=== PATIENT | female | born 1945 | race Two or more races ===

== ENCOUNTER 2024-12-25 19:10 | Inpatient (IN) | payer OTHER, MEDICAID ==
[~2024-12-25] VITALS: Ht 157.5 cm; Wt 46.2 kg
--- NOTE | 2024-12-25 19:51 | ED.PDOC ---
History of Present Illness HPI Comments 79 year old female brought in by daughter presents to the ED with a chief complaint of wound check onset today (12/25/24). Per daughter, patient is bed ridden, was at hospice care 3 months ago in [place], daughter took patient out of hospice and brought patient to live with her. Daughter states patient bed sores worsen the past 5 days, has yellow discharge with foul odor. Daughter also noticed patient began experiencing poor appetite since this morning. Patient has not seen PCP, daughter is trying to change primary care physician. PMHx dementia, Parkinson's disease, DM, HTN. Denies nausea, vomiting, diarrhea, shortness of breath, fever, chills. No other symptoms or modifying factors present at this time. Chief Complaint: Wound Check Time Seen by MD: 19:25 Reviewed Notes: Medications, Allergies Allergies: Coded Allergies: NO KNOWN ALLERGIES (Unverified , 12/25/24) Information Source: Patient, Relative (Child) Mode of Arrival: Ambulatory Severity: Moderate Timing: Days Duration: Since onset Prehospital treatment: None Vital Signs Vital Signs Date Time Temp Pulse Resp B/P (MAP) Pulse Ox O2 Delivery O2 Flow Rate FiO2 12/25/24 22:52 98.9 60 12 148/88 (108) 96 98.9 12/25/24 22:52 Room Air* 0 21 Physical Exam General: Awake, alert , appears cachectic Skin: Skin in warm, dry. There is approximately 5 x 4 cm circular ulceration over the sacral area with necrotic base, surrounding erythema, some purulent drainage. There is approximately 4 x 3 cm circular ulceration over the right lateral iliac with necrotic base HEENT: The head is normocephalic and atraumatic. Conjunctivae are clear without exudates or hemorrhage. Sclera is non-icteric. Cardiac: Regular rate Respiratory: No signs of respiratory distress. No Stridor. Extremities: Upper and lower extremities are contracted Neurological: The patient is awake, alert , nonverbal Review of Systems: Unable to obtain ROS secondary to patient nonverbal Past Medical History PAST MEDICAL HISTORY: Dementia, DM, HTN Past Medical History (Other): Parkinson's disease Surgical History: Denies all surgeries PIN DRAFTER History: No Pertinent PIN DRAFTER History Family History Family History: Reviewed,noncontributory to illness, No family hx of Cancer, No family hx of DM, No family hx of Heart cheri, No family hx of HTN, No family hx ofKidney cheri, No family hx of Liver cheri, No family hx of Lung cheri, No family hx of Stroke Social History Smoker: Non-Smoker Alcohol: Denies ETOH Use Drugs: Denies Drug Use Lives In: Home Was a procedure done? Was a procedure done?: No Differential Dx Considerations may include: Cellulitis, sepsis, osteomyelitis, infected decubitus ulcer, other X-Ray, Labs, Meds, VS Vital Signs Date Time Temp Pulse Resp B/P (MAP) Pulse Ox O2 Delivery O2 Flow Rate FiO2 12/25/24 22:52 98.9 60 12 148/88 (108) 96 98.9 12/25/24 22:52 60 17 96 Room Air* 0 21 12/25/24 19:20 96.8 57 14 167/67 (100) 100 Lab Test 12/25/24 20:05 Range/Units White Blood Count 4.7 4.4-10.8 10^3/uL Red Blood Count 3.54 L 4.0-5.20 10^6/uL Hemoglobin 10.2 L 12.2-16.2 g/dL Hematocrit 30.9 L 36.0-46.0 % Mean Corpuscular Volume 87.3 80.0-100.0 fL Mean Corpuscular Hemoglobin 28.9 28.0-32.0 pg Mean Corpuscular Hemoglobin Concent 33.0 32.0-36.0 g/dL Red Cell Distribution Width 14.6 H 11.8-14.3 % Platelet Count 291 140-450 10^3/uL Mean Platelet Volume 8.0 6.9-10.8 fL Neutrophils (%) (Auto) 73.0 37.0-80.0 % Lymphocytes (%) (Auto) 22.1 10.0-50.0 % Monocytes (%) (Auto) 4.6 0.0-12.0 % Eosinophils (%) (Auto) 0.2 0.0-7.0 % Basophils (%) (Auto) 0.1 0.0-2.0 % Neutrophils # (Auto) 3.5 1.6-8.6 10 ^3/uL Lymphocytes # (Auto) 1.0 0.4-5.4 10 ^3/uL Monocytes # (Auto) 0.2 0-1.3 10 ^3/uL Eosinophils # (Auto) 0 0-0.8 10 ^3/uL Basophils # (Auto) 0 0-0.2 10 ^3/uL Nucleated Red Blood Cells 0.2 % Sodium Level 143 136-145 mmol/L Potassium Level 4.5 3.5-5.1 mmol/L Chloride Level 106 98-107 mmol/L Carbon Dioxide Level 27 20-31 mmol/L Anion Gap 10 5-15 Blood Urea Nitrogen 52 H 9-23 mg/dL Creatinine 0.82 0.550-1.02 mg/dL Glomerular Filtration Rate Calc 73 >90 mL/min BUN/Creatinine Ratio 63.4 H 10.0-20.0 Serum Glucose 113 H 74-106 mg/dL Lactic Acid Level 1.6 0.4-2.0 mmol/L Calcium Level 9.3 8.7-10.4 mg/dL Total Bilirubin 0.4 0.2-1.0 mg/dL Aspartate Amino Transferase (AST) 25 13-40 U/L Alanine Aminotransferase (ALT) 15 7-40 U/L Alkaline Phosphatase 87 46-116 U/L Total Protein 7.6 5.7-8.2 g/dL Albumin 3.6 3.2-4.8 g/dL Current Medications Medications (Trade) Dose Ordered Sig/Anastasia Route Start Time Stop Time Status Last Admin Ceftriaxone Sodium 50 ml @ 100 mls/hr ONCE ONCE IV 12/25/24 19:45 12/25/24 20:14 DC 12/25/24 22:01 Vancomycin HCl 250 ml @ 250 mls/hr ONCE ONCE IV 12/25/24 19:45 12/25/24 20:44 DC 12/25/24 22:51 [place] [id number] Ph: [phone] DIAGNOSTIC IMAGING Diagnostic Imaging Report : [id number] Signed PATIENT: KAYLIN BOWENACCT: [id number] UNIT: [id number] : 1945 LOC: ER ROOM / BED: / AGE / SEX: 79 / F ADM STATUS: REG ER SERVICE 43 ORDERING PHYSICIAN: ANI GONSALEZ MD PROCEDURE(s): ABPLIV - CT AB PEL WITH IV CON ONLY REASON: Infected sacral wounds ORDER NUMBER(s): [id number], ACCESSION NUMBER(s): [id number] Exam: CT AB PEL WITH IV CON ONLY History: Infected sacral wounds Comparison Study: None Contrast: Type of contrast: Contrast injected: Contrast wasted: 0 TECHNIQUE: Multidetector CT of abdomen and pelvis with IV contrast. Radiation Dose Information: CT Dose: CTDI volume is 5.64 mGy. Dose-length product is 327.66 mGy*cm FINDINGS: lung bases are clear except for stranding in the lower lobes which is nonspecific. Heart size remains within normal limits. I do not see evidence for pulmonary embolus there are calcifications in the coronary arteries specifically in the left anterior descending in the left circumflex coronary arteries. Patient has a large stones in the gallbladder these measure on the order of 1.4 cm in size there are 5 stones. There is a large cyst involving left kidney left kidney appears to be atrophied also dilated collecting system involving the right kidney. Patient has a very large stool burden is probably constipated bladder is filled with fluid and there are dense calcifications in the abdominal aorta and the iliacs. IMPRESSION: 1. Gastrointestinal tract is probably obstructed by large stool burden dense stool. There is significant atherosclerotic disease in the abdominal aorta and iliacs and superficial femoral arteries. Bladder is filled with fluid patient has an atrophied in cystic left kidney and there is mild hydronephrosis involving right kidney. Patient has large stones involving the gallbladder these are between 1 and 2 cm in size. There is stranding in the lung bases bilaterally. ATED BY: BRANDON NG MD DICTATED DATE/TIME: 12/25/242231 SIGNED BY: BRANDON NG MD SIGNED DATE/TIME: 12/25/242231 CC: Time of 1ST Reevaluation: 19:55 Reevaluation 1ST: Unchanged Patient Education/Counseling: Diagnosis, Treatment, Prognosis Family Education/Counseling: Diagnosis, Treatment, Prognosis Departure 1 Departure Time of Disposition: 21:04 Impression: Primary Impression: Infected pressure ulcer Disposition: ADMITTED INPATIENT Condition: Stable Comments 79-year-old female who presented to the emergency department with her daughter with infected pressure ulcers. Patient's daughter had been caring for the wounds on her own at home. Patient admitted for antibiotics, wound care consult. Patient admitted for further treatment, evaluation and monitoring. Extensive evaluation was performed in attempt to identify or rule out: (See differential diagnosis section) The following tests were ordered, and results were reviewed by me: (See diagnostic results section) The following test were independently interpreted by me: N/A I reviewed and agreed with the following test results read by other providers: N/A I reviewed the following notes from the pt's past medical encounters: N/A Additional information was gathered from interviewing the following independent historians: Patient's daughter at bedside Discussion of management or test interpretation with external physician/other qualified health client care coordinator: N/A Addressed an acute or chronic illness that poses a threat to life or bodily function: Infected pressure ulcers Decision regarding hospitalization or escalation of hospital level of care: Risk and benefits of admission for further treatment of patient's condition was c onsidered. Due to patient's current clinical condition, high risk of decline and poor outcome if discharged and need for further inpatient management and monitoring, patient will be admitted to the hospital. Drug therapy requiring intensive monitoring for toxicity: N/A Parenteral controlled substances: N/A Decision regarding elective major surgery with identified patient or procedure risk factors: N/A Decision regarding emergency major surgery: N/A Decision not to resuscitate or to de-escalate care because of poor prognosis: N/A Diagnosis or treatment significantly limited by social determinants of health: N/A Critical Care Note Critical Care Time?: No Stability Stability form required: No I personally scribed for ANI GONSALEZ MD ([email or web address]) on 12/25/24 at 19:51. Electronically submitted by Simran Bowen ([email or web address]). I personally scribed for ANI GONSALEZ MD ([email or web address]) on 12/25/24 at 19:56. Electronically submitted by Simran Bowen ([email or web address]). I personally scribed for ANI GONSALEZ MD ([email or web address]) on 12/25/24 at 22:40. Electronically submitted by Simran Bowen ([email or web address]). ANI GONSALEZ MD Dec 25, 2024 19:51
[2024-12-25 20:22] LABS: Basophils # (auto) 0 10 ^3/uL (0-0.2); Basophils % (auto) 0.1 % (0.0-2.0); Eosinophils # (auto) 0 10 ^3/uL (0-0.8); Eosinophils % (auto) 0.2 % (0.0-7.0); Hematocrit 30.9 % (36.0-46.0); Hemoglobin 10.2 g/dL (12.2-16.2); Lymphocytes % (auto) 22.1 % (10.0-50.0); Mean Corpuscular Hemoglobin 28.9 pg (28.0-32.0); Mean Corpuscular Volume 87.3 fL (80.0-100.0); Monocytes # (auto) 0.2 10 ^3/uL (0-1.3); Monocytes % (auto) 4.6 % (0.0-12.0); Neutrophils # (auto) 3.5 10 ^3/uL (1.6-8.6); Nucleated Red Blood Cells % 0.2 %; Platelet Count (auto) 291 10^3/uL (140-450); Red Blood Cells 3.54 10^6/uL (4.0-5.20); Red Cell Distribution Width 14.6 % (11.8-14.3); White Blood Cell 4.7 10^3/uL (4.4-10.8)
[2024-12-25 20:41] LABS: Alanine Aminotransferase 15 U/L (7-40); Albumin 3.6 g/dL (3.2-4.8); Alkaline Phosphatase 87 U/L (46-116); Calcium 9.3 mg/dL (8.7-10.4); Carbon Dioxide 27 mmol/L (20-31); Chloride 106 mmol/L (98-107)
[2024-12-25 20:42] LABS: Anion Gap 10 (5-15); Aspartate Aminotransferase 25 U/L (13-40); BUN/Creatinine Ratio 63.4 (10.0-20.0); Bilirubin, Total 0.4 mg/dL (0.2-1.0); Potassium 4.5 mmol/L (3.5-5.1); Sodium 143 mmol/L (136-145); Total Protein 7.6 g/dL (5.7-8.2)
[2024-12-25 20:45] LABS: Blood Urea Nitrogen 52 mg/dL (9-23); Glucose 113 mg/dL (74-106)
[2024-12-25] MEDS: cefTRIAXone 1GM/50ML D5W 50 ML IV ONE (22:01)
--- NOTE | 2024-12-25 22:34 | DVH ---
Exam: CT AB PEL WITH IV CON ONLY History: Infected sacral wounds Comparison Study: None Contrast: Type of contrast: Contrast injected: Contrast wasted: 0 TECHNIQUE: Multidetector CT of abdomen and pelvis with IV contrast. Radiation Dose Information: CT Dose: CTDI volume is 5.64 mGy. Dose-length product is 327.66 mGy*cm FINDINGS: lung bases are clear except for stranding in the lower lobes which is nonspecific. Heart size remains within normal limits. I do not see evidence for pulmonary embolus there are calcifications in the coronary arteries specifi dada in the left anterior descending in the left circumflex coronary arteries. Patient has a large stones in the gallbladder these measure on the order of 1.4 cm in size there are 5 stones. There is a large cyst involving left kidney left kidney appears to be atrophied also dilated collecti ng system involving the right kidney. Patient has a very large stool burden is probably constipated bladder is filled with fluid and there are dense calcifications in the abdominal aorta and the iliacs. IMPRESSION: 1. Gastrointestinal tract is probably obstructed by large stool burden dense stool. There is significant atherosclerotic disease in the abdominal aorta and iliacs and superficial femora l arteries. Bladder is filled with fluid patient has an atrophied in cystic left kidney and there is mild hydrone phrosis involving right kidney. Patient has large stones involving the gallbladder these are between 1 and 2 cm in size. There is stranding in the lung bases bilaterally.
[2024-12-25] MEDS: IOHEXOL 300 MG/ML 100ML BOTTLE IJ ONE (22:37)
[2024-12-25] MEDS: VANCOMYCIN 1GM/250ML KIT 250 ML IV ONE (22:51)
[2024-12-25 22:52] VITALS: PULSE 60; RESP 17; O2SAT 96
--- NOTE | 2024-12-25 23:43 | DVHHPRES ---
History of Present Illness Resident Creating Document: YEN SANCHES RESDIENT History of Present Illness This is a 79-year-old female nonverbal and bed ridden with past medical history of dementia, Parkinson disease, and hypertension brought to the hospital due to worsening of bedsore at sacral area. Per patient's daughter, she has sacral ulcer since 1 year but recently has worsened, and upon changing dressing 3 days back noticed purulent discharge with foul-smelling of ulcer. she was on hospice care 1 year back, discontinued hospice 4 months back. Per patient's daughter, she also has decreased oral intake. PMHx: Dementia, Parkinson disease, hypertension PSHx: Nonsignificant Social history: Patient is nonverbal, bedridden, lives with the daughter's at home. Denies previous history of smoking or any other drug use Home medication: Carbidopa/levodopa, gabapentin, Protonix, atorvastatin Allergic history: No known allergy Review of Systems Review of Systems Patient is nonverbal, review of systems could not obtain Allergies: Coded Allergies: NO KNOWN ALLERGIES (Unverified , 12/25/24) Exam Vital Signs Vital Signs Date Time Temp Pulse Resp B/P (MAP) Pulse Ox O2 Delivery O2 Flow Rate FiO2 12/25/24 22:52 98.9 60 12 148/88 (108) 96 98.9 12/25/24 22:52 Room Air* 0 21 Exam General Appearance: Alert, nonverbal, and cachectic HEENT: Atraumatic, PERRLA, EOMI, Mucous membrane moist/pink Respiratory: Clear to auscultation, Normal air movement Cardiovascular: Regular rate, Normal S1, Normal S2, No murmurs, no chest wall tenderness Abdominal: Normal bowel sounds, Soft, No tenderness, No hepatospenomegaly, No masses Extremities: No clubbing, No cyanosis, No edema, Normal pulses, No tenderness/swelling Skin: Grade 3-4 sacral area wound, with scant amount of purulent discharge, foul-smelling Neuro: Due to advanced Parkinson, has contracted limbs, neurology exam could not perform Labs/Xrays Labs Test 12/25/24 20:05 Range/Units White Blood Count 4.7 4.4-10.8 10^3/uL Red Blood Count 3.54 L 4.0-5.20 10^6/uL Hemoglobin 10.2 L 12.2-16.2 g/dL Hematocrit 30.9 L 36.0-46.0 % Mean Corpuscular Volume 87.3 80.0-100.0 fL Mean Corpuscular Hemoglobin 28.9 28.0-32.0 pg Mean Corpuscular Hemoglobin Concent 33.0 32.0-36.0 g/dL Red Cell Distribution Width 14.6 H 11.8-14.3 % Platelet Count 291 140-450 10^3/uL Mean Platelet Volume 8.0 6.9-10.8 fL Neutrophils (%) (Auto) 73.0 37.0-80.0 % Lymphocytes (%) (Auto) 22.1 10.0-50.0 % Monocytes (%) (Auto) 4.6 0.0-12.0 % Eosinophils (%) (Auto) 0.2 0.0-7.0 % Basophils (%) (Auto) 0.1 0.0-2.0 % Neutrophils # (Auto) 3.5 1.6-8.6 10 ^3/uL Lymphocytes # (Auto) 1.0 0.4-5.4 10 ^3/uL Monocytes # (Auto) 0.2 0-1.3 10 ^3/uL Eosinophils # (Auto) 0 0-0.8 10 ^3/uL Basophils # (Auto) 0 0-0.2 10 ^3/uL Nucleated Red Blood Cells 0.2 % Sodium Level 143 136-145 mmol/L Potassium Level 4.5 3.5-5.1 mmol/L Chloride Level 106 98-107 mmol/L Carbon Dioxide Level 27 20-31 mmol/L Anion Gap 10 5-15 Blood Urea Nitrogen 52 H 9-23 mg/dL Creatinine 0.82 0.550-1.02 mg/dL Glomerular Filtration Rate Calc 73 >90 mL/min BUN/Creatinine Ratio 63.4 H 10.0-20.0 Serum Glucose 113 H 74-106 mg/dL Lactic Acid Level 1.6 0.4-2.0 mmol/L Calcium Level 9.3 8.7-10.4 mg/dL Total Bilirubin 0.4 0.2-1.0 mg/dL Aspartate Amino Transferase (AST) 25 13-40 U/L Alanine Aminotransferase (ALT) 15 7-40 U/L Alkaline Phosphatase 87 46-116 U/L Total Protein 7.6 5.7-8.2 g/dL Albumin 3.6 3.2-4.8 g/dL Assessment/Plan Assessment/Plan Decubitus ulcer, grade 3-4 Possible infected decubitus ulcer Wound culture, wound consultation Surgical consultation Check wound and blood culture, MRSA nares Empiric antibiotic vancomycin and ceftriaxone IV fluid Wound dressing History of Parkinson, continue carbidopa/levodopa Advanced dementia History of hypertension, the continue amlodipine Mild anemia Severe malnutrition Consult nutrition Gallbladder stone CT scan finding DIET: Clear liquid diet DVT PROPHYLAXIS: Lovenox GI PROPHYLAXIS:: Protonix BOWEL REGIMEN: CT scan shows, large stool burden dense stool. Fleet enema with lactulose CODE STATUS: Goal of care discussed for more than 20 minutes, DNR DISPOSITION: Med/surge Patient's status and paln discussed with patient's daughter at the bedside. Case discussed with Dr. Gomez. Plan discussed with: Patient, Other My Orders Orders - YEN SANCHES RESDIENT Procedure Category Date Status Time Admit ADMIT 12/25/24 Transmitted 23:11 Stat Ekg For Chest [facility] 12/25/24 Transmitted Pain 23:11 Notify Md Of Changes [facility] 12/25/24 Transmitted From Base 23:11 Date of Service: Dec 25, 2024 Billing Provider: CARLY GOMEZ MD Common Visit Codes: [id number] INP/OBS CARE (HIGH) Secondary Visit Codes: [id number]-[id number] CARE PLAN 30 MINUTES YEN SANCHES RESDIENT Dec 25, 2024 23:43 CARLY GOMEZ MD Dec 26, 2024 11:33
[2024-12-25] MEDS ORDERED: HYDROcodone-ACET 5/325MG TAB PO PRN (23:45)
[2024-12-25] MEDS ORDERED: ACETAMINOPHEN 325 MG TAB PO PRN (23:45)
[2024-12-26] MEDS ORDERED: DOCUSATE SOD 100 MG CAP PO ONE (00:30)
[2024-12-26] MEDS ORDERED: VANCOMYCIN PER PHARMACY 0 MG IV SCH (00:30)
[2024-12-26] MEDS: FLEET ENEMA(ADULT) 135 ML PR ONE (01:33)
[2024-12-26] MEDS: HYDROcodone-ACET 5/325MG TAB PO ONE (01:36)
[2024-12-26] MEDS: LACTULOSE 20Gm/30ML SOLN PO ONE (01:37)
[2024-12-26] MEDS: amLODIPine BESYLATE 5 MG TAB PO ONE (01:48)
[2024-12-26] MEDS: CARBIDOPA W LEVODOPA 25/100mg TABLET PO ONE (01:48)
[2024-12-26] MEDS: ENOXAPARIN SOD 30 MG/0.3 ML SYRINGE SC ONE (01:48)
[2024-12-26] MEDS: PANTOPRAZOLE 40 MG/10 ML VIAL INJ IV ONE (01:48)
[2024-12-26] MEDS: GABAPENTIN 100 MG CAP PO ONE (01:48)
[2024-12-26] MEDS: SODIUM CHLORIDE 0.9% 1,000 ML IV ONE (01:50)
[2024-12-26] MEDS ORDERED: CARB25TA79 PO (02:49)
[2024-12-26] MEDS ORDERED: AMLO1TAB22 PO (02:49)
[2024-12-26] MEDS ORDERED: GABA-1308 PO (02:49)
[2024-12-26] MEDS ORDERED: ACET-1881 PO (02:49)
[2024-12-26] MEDS ORDERED: PANT1INJ3 PO (02:49)
[2024-12-26 05:00] VITALS: BP 124/55; PULSE 50; RESP 18; O2SAT 98
[2024-12-26 07:00] VITALS: BP 124/55; PULSE 50; RESP 16; TEMP 97; O2SAT 96
[2024-12-26 08:03] LABS: Alanine Aminotransferase 11 U/L (7-40); Alkaline Phosphatase 85 U/L (46-116); Anion Gap 9 (5-15); BUN/Creatinine Ratio 63.9 (10.0-20.0); Calcium 8.9 mg/dL (8.7-10.4); Carbon Dioxide 26 mmol/L (20-31); Chloride 107 mmol/L (98-107); Glucose 97 mg/dL (74-106); Sodium 142 mmol/L (136-145); Total Protein 7.2 g/dL (5.7-8.2)
[2024-12-26 08:04] LABS: Albumin 3.4 g/dL (3.2-4.8); Aspartate Aminotransferase 19 U/L (13-40); Bilirubin, Total 0.3 mg/dL (0.2-1.0); INR 1.08 (0.9-1.15); Partial Thromboplastin Time 28.8 SEC (24.5-34.5); Prothrombin Time 11.4 sec (9.3-11.8)
[2024-12-26 08:08] LABS: Basophils # (auto) 0 10 ^3/uL (0-0.2); Basophils % (auto) 0.2 % (0.0-2.0); Eosinophils # (auto) 0 10 ^3/uL (0-0.8); Eosinophils % (auto) 0.2 % (0.0-7.0); Hematocrit 28.6 % (36.0-46.0); Hemoglobin 9.5 g/dL (12.2-16.2); Lymphocytes # (auto) 0.7 10 ^3/uL (0.4-5.4); Lymphocytes % (auto) 19.5 % (10.0-50.0); Mean Corpuscular Hemoglobin 28.2 pg (28.0-32.0); Mean Corpuscular Hgb Conc. 33.4 g/dL (32.0-36.0); Mean Corpuscular Volume 84.5 fL (80.0-100.0); Monocytes # (auto) 0.2 10 ^3/uL (0-1.3); Monocytes % (auto) 4.9 % (0.0-12.0); Neutrophils # (auto) 2.8 10 ^3/uL (1.6-8.6); Neutrophils % (auto) 75.2 % (37.0-80.0); Nucleated Red Blood Cells % 0.1 %; Platelet Count (auto) 263 10^3/uL (140-450); Red Blood Cells 3.38 10^6/uL (4.0-5.20); Red Cell Distribution Width 14.4 % (11.8-14.3); White Blood Cell 3.7 10^3/uL (4.4-10.8)
[2024-12-26 08:09] LABS: Blood Urea Nitrogen 46 mg/dL (9-23); Potassium 3.4 mmol/L (3.5-5.1)
[2024-12-26 08:14] LABS: CRP High Sensitivity 2.88 mg/dL (<1.0)
[2024-12-26 09:03] VITALS: BP 149/67; PULSE 46; RESP 18; O2SAT 98
--- NOTE | 2024-12-26 09:23 | DVHPNRES ---
Progress Note Date Seen: Dec 26, 2024 Resident Creating Document: KAYLIN GO RESIDENT Has the PT tested + for MRSA If YES, has PT been informed?: No Medical Necessity Reason Pt with a Central, PICC or Fol: No Subjective Review of Systems This is a 79-year-old female nonverbal and bed ridden with past medical history of dementia, Parkinson disease, and hypertension brought to the hospital due to worsening of bedsore at sacral area. Per patient's daughter, she has sacral ulcer since 1 year but recently has worsened, and upon changing dressing 3 days back noticed purulent discharge with foul-smelling of ulcer. she was on hospice care 1 year back, discontinued hospice 4 months back. Per patient's daughter, she also has decreased oral intake. PMHx: Dementia, Parkinson disease, hypertension PSHx: Nonsignificant Social history: Patient is nonverbal, bedridden, lives with the daughter's at home. Denies previous history of smoking or any other drug use Home medication: Carbidopa/levodopa, gabapentin, Protonix, atorvastatin Allergic history: No known allergy Objective vital signs Vital Sign Date Time Temp Pulse Resp B/P (MAP) Pulse Ox O2 Delivery O2 Flow Rate FiO2 12/26/24 09:03 46 18 149/67 (94) 98 12/26/24 07:55 Room Air* 0 21 12/26/24 07:00 97.0 97.0 Total Intake and Output 12/25/24 12/25/24 12/26/24 15:00 23:00 07:00 Intake Total 50 ml 1250 ml Balance 50 ml 1250 ml medications Current Medications Medications Dose Ordered Sig/Anastasia Route Start Time Stop Time Status Last Admin Dose Admin Pantoprazole Sodium 40 mg DAILY IV 12/26/24 10:00 Acetaminophen 650 mg Q4HP PRN PO 12/25/24 23:45 Acetaminophen/ Hydrocodone Bitart 1 tab Q6HPRN PRN PO 12/25/24 23:45 Carbidopa/Levodopa 1 tab BID PO 12/26/24 10:00 Gabapentin 100 mg BID PO 12/26/24 10:00 Amlodipine Besylate 5 mg DAILY PO 12/26/24 10:00 Vancomycin HCl 0 ml @ 0 mls/hr UD IV 12/26/24 00:30 UNV Ceftriaxone Sodium 50 ml @ 100 mls/hr DAILY@09 IV 12/26/24 09:00 Lactulose 30 ml BID PO 12/26/24 10:00 Enoxaparin Sodium 30 mg DAILY SC 12/27/24 10:00 Examination General Appearance: Alert, nonverbal, and cachectic HEENT: Atraumatic, PERRLA, EOMI, Mucous membrane moist/pink Respiratory: Clear to auscultation, Normal air movement Cardiovascular: Regular rate, Normal S1, Normal S2, No murmurs, no chest wall tenderness Abdominal: Normal bowel sounds, Soft, No tenderness, No hepatospenomegaly, No masses Extremities: No clubbing, No cyanosis, No edema, Normal pulses, No tenderness/swelling Skin: Grade 3-4 sacral area wound, with scant amount of purulent discharge, foul-smelling Neuro: Due to advanced Parkinson, has contracted limbs, neurology exam could not perform laboratory and microbiology Laboratory Tests 12/26/24 07:00 Test 12/26/24 07:00 Range/Units Serum Glucose 97 74-106 mg/dL Problem List/Assessment/Plan Problem List/Assessment/Plan Decubitus ulcer, grade 3-4 Possible infected decubitus ulcer Wound culture, wound consultation Surgical consultation: conservative managment Pending wound and blood culture, MRSA nares Empiric antibiotic vancomycin and ceftriaxone IV fluid Wound dressing History of Parkinson, continue carbidopa/levodopa Advanced dementia History of hypertension, the continue amlodipine Mild anemia Severe malnutrition Consult nutrition Gallbladder stone CT scan finding DIET: Clear liquid diet DVT PROPHYLAXIS: Lovenox GI PROPHYLAXIS:: Protonix BOWEL REGIMEN: CT scan shows, large stool burden dense stool. Fleet enema with lactulose CODE STATUS: Goal of care discussed for more than 20 minutes, DNR DISPOSITION: Med/surge Speaking with the daughter, she will like that the patient come back to hospice, social service consulted Case discussed with Dr. Moe Plan discussed with: Patient, Other (rn) My Orders My Orders Orders - KAYLIN GO RESIDENT Procedure Category Date Status Time Erythrocyte LAB 12/26/24 In Process Sedimentation Rate 07:15 Date of Service: Dec 26, 2024 Billing Provider: GAVIN MOE MD Common Visit Codes: [id number] INP/OBS CARE(HIGH) KAYLIN GO RESIDENT Dec 26, 2024 09:23 GAVIN MOE MD Dec 27, 2024 10:10
[2024-12-26] MEDS: GABAPENTIN 100 MG CAP PO SCH (10:00)
[2024-12-26] MEDS: CARBIDOPA W LEVODOPA 25/100mg TABLET PO SCH (10:00)
[2024-12-26] MEDS: LACTULOSE 20Gm/30ML SOLN PO SCH (10:00)
[2024-12-26] MEDS: amLODIPine BESYLATE 5 MG TAB PO SCH (10:00)
[2024-12-26] MEDS ORDERED: DOCUSATE SOD 100 MG CAP PO SCH (10:00)
[2024-12-26] MEDS: PANTOPRAZOLE 40 MG/10 ML VIAL INJ IV SCH (10:19)
[2024-12-26] MEDS: cefTRIAXone 1GM/50ML D5W 50 ML IV SCH (10:20)
[2024-12-26 10:44] LABS: Erythrocyte Sedimentation Rate 46 mm/hr (0-20)
[2024-12-26] MEDS: ACCU-CHEK COMFORT CURVE STRIP VI SCH (11:30)
[2024-12-26] MEDS: InsuLIN REG 1unit/0.01ml Soln (100units/ml) SC SCH (11:30)
--- NOTE | 2024-12-26 11:32 | DVHINCON2 ---
Date of service: Dec 26, 2024 Reason for Consultation sacral ulcer History of Present Illness History Source: RN Notes, Notes Exam Limitations: Physical impairment HPI 79-year-old female nonverbal bedridden patient. The patient was brought to the ER for a worsening bed sore in sacral area. Per notes there is a sacral wound with foul smelling, purulent drainage. Home Meds Reported Medications Pantoprazole Sodium (PANTOPRAZOLE SODIUM) 40 Mg Inj, 40 MG PO DAILY, INJ 12/26/24 Carbidopa-Levodopa (Carbidopa/Levodopa Odt 25-100 mg) 1 Tab Tab, 1 TAB PO TID, TAB 12/26/24 Amlodipine Besylate (Amlodipine Besylate) 5 Mg Tab, 5 MG PO DAILY for 30 Days, MG 12/26/24 Acetaminophen (Acetaminophen) 325 Mg Tab, 500 MG PO Q6HPRN PRN for PAIN OR FEVER for 30 Days, MG 0 Refills 12/26/24 Gabapentin (Gabapentin) 100 Mg Cap, 100 MG PO DAILY for 30 Days, MG 12/26/24 Past Medical History Cardiac: HTN Pulmonary: No pertinent Hx Central Nervous System: No pertinent Hx GI: No pertinent Hx Hemotology/Oncology: No pertinent Hx Hepatobiliary: No pertinent Hx Psychiatric: Other Musculoskeletal: No pertinent Hx Rheumotologic: No pertinent Hx Infectious Disease: No peritnent Hx ENT: No pertinent Hx Renal/: No pertinent Hx Endocrine: No pertinent Hx Dermatology: No pertinent Hx Others dementia, Parkinson disease Patient Family History: Diabetes mellitus G8 MOTHER FH: cancer G8 FATHER Glaucoma G8 MOTHER Smoker: No Hx (Negative) Alocohol: None Drugs: None Lives with: With family, Other (daughter) Review of Systems Comments patient non verbal H&P Exam Vital Signs Vital Signs Date Time Temp Pulse Resp B/P (MAP) Pulse Ox O2 Delivery O2 Flow Rate FiO2 12/26/24 09:03 46 18 149/67 (94) 98 12/26/24 07:55 Room Air* 0 21 12/26/24 07:00 97.0 97.0 General Appeara: Cachetic, Other (nonverbal) Head Exam: Normal inspection Pulmonary/Respiratory: Normal inspection, Normal breath sounds Cardiovascular/Chest: Normal inspection, Regular rate Hand Exam: Normal inspection Neuro/Mental St: Other (nonverbal) Skin Exam: Other (sacral wound ) Wounds sacral wound , non purulent drainage noted at this time Labs/Xrays Labs Test 12/26/24 09:06 12/26/24 07:00 12/25/24 20:05 Range/Units Erythrocyte Sedimentation Rate 46 H 0-20 mm/hr Hemoglobin A1c 5.9 H <5.7 % A1C White Blood Count 3.7 L 4.4-10.8 10^3/uL Red Blood Count 3.38 L 4.0-5.20 10^6/uL Hemoglobin 9.5 L 12.2-16.2 g/dL Hematocrit 28.6 L 36.0-46.0 % Mean Corpuscular Volume 84.5 80.0-100.0 fL Mean Corpuscular Hemoglobin 28.2 28.0-32.0 pg Mean Corpuscular Hemoglobin Concent 33.4 32.0-36.0 g/dL Red Cell Distribution Width 14.4 H 11.8-14.3 % Platelet Count 263 140-450 10^3/uL Mean Platelet Volume 8.0 6.9-10.8 fL Neutrophils (%) (Auto) 75.2 37.0-80.0 % Lymphocytes (%) (Auto) 19.5 10.0-50.0 % Monocytes (%) (Auto) 4.9 0.0-12.0 % Eosinophils (%) (Auto) 0.2 0.0-7.0 % Basophils (%) (Auto) 0.2 0.0-2.0 % Neutrophils # (Auto) 2.8 1.6-8.6 10 ^3/uL Lymphocytes # (Auto) 0.7 0.4-5.4 10 ^3/uL Monocytes # (Auto) 0.2 0-1.3 10 ^3/uL Eosinophils # (Auto) 0 0-0.8 10 ^3/uL Basophils # (Auto) 0 0-0.2 10 ^3/uL Nucleated Red Blood Cells 0.1 % Prothrombin Time 11.4 9.3-11.8 sec Prothrombin Time INR 1.08 0.9-1.15 Activated Partial Thromboplast Time 28.8 24.5-34.5 SEC Sodium Level 142 136-145 mmol/L Potassium Level 3.4 L 3.5-5.1 mmol/L Chloride Level 107 98-107 mmol/L Carbon Dioxide Level 26 20-31 mmol/L Anion Gap 9 5-15 Blood Urea Nitrogen 46 H 9-23 mg/dL Creatinine 0.72 0.550-1.02 mg/dL Glomerular Filtration Rate Calc 86 >90 mL/min BUN/Creatinine Ratio 63.9 H 10.0-20.0 Serum Glucose 97 74-106 mg/dL Calcium Level 8.9 8.7-10.4 mg/dL Total Bilirubin 0.3 0.2-1.0 mg/dL Aspartate Amino Transferase (AST) 19 13-40 U/L Alanine Aminotransferase (ALT) 11 7-40 U/L Alkaline Phosphatase 85 46-116 U/L C-Reactive Protein High Sensitivity 2.88 H <1.0 mg/dL Total Protein 7.2 5.7-8.2 g/dL Albumin 3.4 3.2-4.8 g/dL Lactic Acid Level 1.6 0.4-2.0 mmol/L Assessment/Plan Problem List: (1) Infected pressure ulcer Plan patient was brought to the ER by daughter for sacral wound evaluation , per notes wound was draining purulent drainage patient has a sacral wound with small amount of drainage at this time which is non purulent or foul smelling Plan: continue with wound care and IV antibiotics Dr. Tesfaye notified and will see patient Plan discussed with: Other Visit Coding Surgery Date of Service if different f: Dec 26, 2024 Billing Provider: HAILEY HENRIQUEZ MD Surgery Visit Codes: 92506 - INP CONSULT <80 MIN ANGIE LORD KIT [facility] Dec 26, 2024 11:32
[2024-12-26 13:00] VITALS: BP 137/63; PULSE 46; RESP 16; O2SAT 99
--- NOTE | 2024-12-26 14:27 | DVHINCON2 ---
Date of service: Dec 26, 2024 History of Present Illness 71-year-old female with Parkinson's dementia currently contracted and bedridden with a chronic sacral pressure ulcer brought in by her daughter due to worsening pressure ulcer. She has DNR status Past Medical History Parkinson's disease with dementia. Hypertension. Past Surgical History No recent surgeries Family History: Diabetes mellitus G8 MOTHER FH: cancer G8 FATHER Glaucoma G8 MOTHER Family History Noncontributory Social History No alcohol, tobacco, IV drug use Allergies: Coded Allergies: NO KNOWN ALLERGIES (Unverified , 12/25/24) Home Meds Reported Medications Pantoprazole Sodium (PANTOPRAZOLE SODIUM) 40 Mg Inj, 40 MG PO DAILY, INJ 12/26/24 Carbidopa-Levodopa (Carbidopa/Levodopa Odt 25-100 mg) 1 Tab Tab, 1 TAB PO TID, TAB 12/26/24 Amlodipine Besylate (Amlodipine Besylate) 5 Mg Tab, 5 MG PO DAILY for 30 Days, MG 12/26/24 Acetaminophen (Acetaminophen) 325 Mg Tab, 500 MG PO Q6HPRN PRN for PAIN OR FEVER for 30 Days, MG 0 Refills 12/26/24 Gabapentin (Gabapentin) 100 Mg Cap, 100 MG PO DAILY for 30 Days, MG 12/26/24 Current Medications Current Medications Medications (Trade) Dose Ordered Sig/Anastasia Route PRN Reason Start Time Stop Time Status Last Admin Pantoprazole Sodium (Protonix) 40 mg DAILY IV 12/26/24 10:00 12/26/24 10:19 Docusate Sodium (Colace Capsule) 100 mg DAILY PO 12/26/24 10:00 12/26/24 00:29 DC Acetaminophen (Tylenol Tablet) 650 mg Q4HP PRN PO MILD PAIN (1-3 PAIN SCALE) 12/25/24 23:45 Acetaminophen/ Hydrocodone Bitart (Mosca 5/325MG Tab) 1 tab Q6HPRN PRN PO MODERATE PAIN (4-6 PAIN SCALE) 12/25/24 23:45 Carbidopa/Levodopa (Sinemet 25/ 100MG) 1 tab BID PO 12/26/24 10:00 Gabapentin (Neurontin Capsule) 100 mg BID PO 12/26/24 10:00 Amlodipine Besylate (Norvasc Tablet) 5 mg DAILY PO 12/26/24 10:00 Vancomycin HCl 0 ml @ 0 mls/hr UD IV 12/26/24 00:30 Ceftriaxone Sodium 50 ml @ 100 mls/hr DAILY@09 IV 12/26/24 09:00 12/26/24 10:20 Lactulose 30 ml BID PO 12/26/24 10:00 Enoxaparin Sodium (Lovenox) 30 mg DAILY SC 12/27/24 10:00 Diagnostic Test (Pha) (Accu-Chek Comfort Curve T) 1 strip ACHS 12/26/24 11:30 12/26/24 11:30 Insulin Human Regular (InsuLIN R) ACHS SC 12/26/24 11:30 Dextrose 50 ml UD PRN IV Blood Sugar LESS THAN 60 12/26/24 11:00 Dextrose 1,000 ml @ 75 mls/hr [id number] IV 12/26/24 12:30 Vital Signs Vital Signs Date Time Temp Pulse Resp B/P (MAP) Pulse Ox O2 Delivery O2 Flow Rate FiO2 12/26/24 09:03 46 18 149/67 (94) 98 12/26/24 07:55 Room Air* 0 21 12/26/24 07:00 97.0 97.0 Physical Exam GEN: Elderly cachectic appearing female contracted not verbally responsive HEENT: Temporal wasting CV: RRR Respiratory: CTAB Extremities: There is severe contracture overall extremities. Skin: There is a proximally a 10 cm pressure ulcer that is unstageable with a necrotic eschar in the sacrum. Labs/Diagnostic Data Labs Test 12/26/24 11:59 12/26/24 09:06 12/26/24 07:00 12/25/24 20:05 Range/Units POC Glucose 69 L 70-106 mg/dl Erythrocyte Sedimentation Rate 46 H 0-20 mm/hr Hemoglobin A1c 5.9 H <5.7 % A1C White Blood Count 3.7 L 4.4-10.8 10^3/uL Red Blood Count 3.38 L 4.0-5.20 10^6/uL Hemoglobin 9.5 L 12.2-16.2 g/dL Hematocrit 28.6 L 36.0-46.0 % Mean Corpuscular Volume 84.5 80.0-100.0 fL Mean Corpuscular Hemoglobin 28.2 28.0-32.0 pg Mean Corpuscular Hemoglobin Concent 33.4 32.0-36.0 g/dL Red Cell Distribution Width 14.4 H 11.8-14.3 % Platelet Count 263 140-450 10^3/uL Mean Platelet Volume 8.0 6.9-10.8 fL Neutrophils (%) (Auto) 75.2 37.0-80.0 % Lymphocytes (%) (Auto) 19.5 10.0-50.0 % Monocytes (%) (Auto) 4.9 0.0-12.0 % Eosinophils (%) (Auto) 0.2 0.0-7.0 % Basophils (%) (Auto) 0.2 0.0-2.0 % Neutrophils # (Auto) 2.8 1.6-8.6 10 ^3/uL Lymphocytes # (Auto) 0.7 0.4-5.4 10 ^3/uL Monocytes # (Auto) 0.2 0-1.3 10 ^3/uL Eosinophils # (Auto) 0 0-0.8 10 ^3/uL Basophils # (Auto) 0 0-0.2 10 ^3/uL Nucleated Red Blood Cells 0.1 % Prothrombin Time 11.4 9.3-11.8 sec Prothrombin Time INR 1.08 0.9-1.15 Activated Partial Thromboplast Time 28.8 24.5-34.5 SEC Sodium Level 142 136-145 mmol/L Potassium Level 3.4 L 3.5-5.1 mmol/L Chloride Level 107 98-107 mmol/L Carbon Dioxide Level 26 20-31 mmol/L Anion Gap 9 5-15 Blood Urea Nitrogen 46 H 9-23 mg/dL Creatinine 0.72 0.550-1.02 mg/dL Glomerular Filtration Rate Calc 86 >90 mL/min BUN/Creatinine Ratio 63.9 H 10.0-20.0 Serum Glucose 97 74-106 mg/dL Calcium Level 8.9 8.7-10.4 mg/dL Total Bilirubin 0.3 0.2-1.0 mg/dL Aspartate Amino Transferase (AST) 19 13-40 U/L Alanine Aminotransferase (ALT) 11 7-40 U/L Alkaline Phosphatase 85 46-116 U/L C-Reactive Protein High Sensitivity 2.88 H <1.0 mg/dL Total Protein 7.2 5.7-8.2 g/dL Albumin 3.4 3.2-4.8 g/dL Lactic Acid Level 1.6 0.4-2.0 mmol/L Assessment 1. Unstageable sacral necrotic pressure ulcer Plan/Recommendation 1. Discussed the diagnosed with the patient's daughter. I offered her surgical debridement versus conservative management as she is DNR. At this time the daughter is uncertain whether she wants to proceed with the surgical debridement. She will let me know if she decides to proceed with the surgery. Plan discussed with: Daughter JEANDONATO MD Dec 26, 2024 14:27
[2024-12-26 17:00] VITALS: BP 145/68; PULSE 46; RESP 18; O2SAT 98
[2024-12-26] MEDS: D5W 5% 1,000 ML IV SCH (17:47)
[2024-12-26] MEDS: POTASSIUM CHLORIDE 20 MEQ, LIDOCAINE 1% (LOCAL ANESTH.) 2 ML in SODIUM CHL 0.9% 100 ML IV ONE (18:08)
[2024-12-26 21:00] VITALS: BP 139/56; PULSE 49; RESP 16; TEMP 97.3; O2SAT 99
[2024-12-27] VITALS (9 sets, daily range): BP systolic 126–153; BP diastolic 56–85; PULSE 45–63; RESP 13–16; TEMP 97.3–98; O2SAT 98–100
[2024-12-27 05:57] LABS: Basophils # (auto) 0 10 ^3/uL (0-0.2); Basophils % (auto) 0.1 % (0.0-2.0); Eosinophils # (auto) 0 10 ^3/uL (0-0.8); Eosinophils % (auto) 0.4 % (0.0-7.0); Hemoglobin 8.1 g/dL (12.2-16.2); Lymphocytes # (auto) 0.7 10 ^3/uL (0.4-5.4); Monocytes # (auto) 0.2 10 ^3/uL (0-1.3); White Blood Cell 2.9 10^3/uL (4.4-10.8)
[2024-12-27 05:59] LABS: Hematocrit 23.7 % (36.0-46.0); Lymphocytes % (auto) 25.1 % (10.0-50.0); Mean Corpuscular Hemoglobin 29.4 pg (28.0-32.0); Mean Corpuscular Hgb Conc. 34.3 g/dL (32.0-36.0); Mean Corpuscular Volume 85.6 fL (80.0-100.0); Monocytes % (auto) 5.2 % (0.0-12.0); Neutrophils % (auto) 69.2 % (37.0-80.0); Nucleated Red Blood Cells % 0.2 %; Platelet Count (auto) 230 10^3/uL (140-450); Red Blood Cells 2.77 10^6/uL (4.0-5.20); Red Cell Distribution Width 14.4 % (11.8-14.3)
[2024-12-27 06:11] LABS: Alanine Aminotransferase 13 U/L (7-40); Alkaline Phosphatase 71 U/L (46-116); Anion Gap 7 (5-15); Aspartate Aminotransferase 16 U/L (13-40); BUN/Creatinine Ratio 53.8 (10.0-20.0); Bilirubin, Total 0.5 mg/dL (0.2-1.0); Carbon Dioxide 27 mmol/L (20-31); Chloride 105 mmol/L (98-107); Glucose 98 mg/dL (74-106); Sodium 139 mmol/L (136-145); Total Protein 6.3 g/dL (5.7-8.2)
[2024-12-27 06:17] LABS: Albumin 2.9 g/dL (3.2-4.8); Blood Urea Nitrogen 35 mg/dL (9-23); Calcium 8.4 mg/dL (8.7-10.4); Potassium 3.1 mmol/L (3.5-5.1)
[2024-12-27] MEDS ORDERED: POTASSIUM CHL 20MEQ/100ML 100 ML IV SCH (07:00)
[2024-12-27 07:53] LABS: Erythrocyte Sedimentation Rate 35 mm/hr (0-20)
[2024-12-27] MEDS: SODIUM CHL 0.9% 100 ML IV SCH (08:44)
[2024-12-27] MEDS: POTASSIUM CHL 20MEQ/50ML 50 ML IV SCH (08:50)
[2024-12-27] MEDS ORDERED: CLINIMIX PER PHARMACY 0 ML IV SCH ×2 (11:30→11:45)
[2024-12-27 11:57] LABS: COVID19 ANTIGEN SOFIA FIA NEGATIVE (NEGATIVE)
[2024-12-27] MEDS: DEXTROSE (50%) 50ML SYRG IV PRN (11:59)
[2024-12-27] MEDS: ENOXAPARIN SOD 30 MG/0.3 ML SYRINGE SC SCH (12:45)
--- NOTE | 2024-12-27 13:11 | DVHPNRES ---
Progress Note Date Seen: Dec 27, 2024 Resident Creating Document: KAYLIN GO RESIDENT Has the PT tested + for MRSA If YES, has PT been informed?: No Medical Necessity Reason Pt with a Central, PICC or Fol: No Subjective Review of Systems This is a 79-year-old female nonverbal and bed ridden with past medical history of dementia, Parkinson disease, and hypertension brought to the hospital due to worsening of bedsore at sacral area. Per patient's daughter, she has sacral ulcer since 1 year but recently has worsened, and upon changing dressing 3 days back noticed purulent discharge with foul-smelling of ulcer. she was on hospice care 1 year back, discontinued hospice 4 months back. Per patient's daughter, she also has decreased oral intake. PMHx: Dementia, Parkinson disease, hypertension PSHx: Nonsignificant Social history: Patient is nonverbal, bedridden, lives with the daughter's at home. Denies previous history of smoking or any other drug use Home medication: Carbidopa/levodopa, gabapentin, Protonix, atorvastatin Allergic history: No known allergy Objective vital signs Vital Sign Date Time Temp Pulse Resp B/P (MAP) Pulse Ox O2 Delivery O2 Flow Rate FiO2 12/27/24 09:00 97.9 46 15 141/69 (93) 98 97.9 12/27/24 08:00 Room Air* 0 21 Total Intake and Output 12/26/24 12/26/24 12/27/24 15:00 23:00 07:00 Intake Total 50 ml 75 ml 0 ml Balance 50 ml 75 ml 0 ml medications Current Medications Medications Dose Ordered Sig/Anastasia Route Start Time Stop Time Status Last Admin Dose Admin Pantoprazole Sodium 40 mg DAILY IV 12/26/24 10:00 12/27/24 12:45 40 MG Acetaminophen 650 mg Q4HP PRN PO 12/25/24 23:45 Vancomycin HCl 0 ml @ 0 mls/hr UD IV 12/26/24 00:30 Ceftriaxone Sodium 50 ml @ 100 mls/hr DAILY@09 IV 12/26/24 09:00 12/27/24 12:44 100 MLS/HR Enoxaparin Sodium 30 mg DAILY SC 12/27/24 10:00 12/27/24 12:45 30 MG Diagnostic Test (Pha) 1 strip ACHS 12/26/24 11:30 12/27/24 12:45 1 STRIP Dextrose 50 ml UD PRN IV 12/26/24 11:00 12/27/24 11:59 50 ML Dextrose 1,000 ml @ 75 mls/hr [id number] IV 12/26/24 12:30 12/27/24 10:34 75 MLS/HR Vancomycin HCl 100 ml @ 100 mls/hr DAILY@1700 IV 12/27/24 17:00 Potassium Chloride 100 ml @ 50 mls/hr Q2H IV 12/27/24 07:00 12/27/24 10:59 UNV Amino Acids 0 ml @ 0 mls/hr PER PHARMACY IV 12/27/24 11:30 UNV Amino Acids 0 ml @ 0 mls/hr PER PHARMACY IV 12/27/24 11:45 UNV Examination General Appearance: Alert, nonverbal, and cachectic HEENT: Atraumatic, PERRLA, EOMI, Mucous membrane moist/pink Respiratory: Clear to auscultation, Normal air movement Cardiovascular: Regular rate, Normal S1, Normal S2, No murmurs, no chest wall tenderness Abdominal: Normal bowel sounds, Soft, No tenderness, No hepatospenomegaly, No masses Extremities: No clubbing, No cyanosis, No edema, Normal pulses, No tenderness/swelling Skin: Grade 3-4 sacral area wound, with scant amount of purulent discharge, foul-smelling Neuro: Due to advanced Parkinson, has contracted limbs, neurology exam could not perform laboratory and microbiology Laboratory Tests 12/27/24 05:00 Test 12/27/24 05:00 Range/Units Serum Glucose 98 74-106 mg/dL Microbiology Date/Time Source Procedure Growth Status 12/26/24 00:17 Blood Blood Culture - Preliminary NO GROWTH AFTER 24 HOURS OF INCUBATION. Resulted Problem List/Assessment/Plan Problem List/Assessment/Plan Decubitus ulcer, grade 3-4 Possible infected decubitus ulcer Wound culture, wound consultation Surgical consultation: Surgical debridement of sacral and left trochanteric necrotic stage IV pressure ulcers Pending wound and blood culture, MRSA nares Empiric antibiotic vancomycin and ceftriaxone IV fluid Wound dressing History of Parkinson, continue carbidopa/levodopa Advanced dementia History of hypertension, the continue amlodipine Mild anemia Severe malnutrition Clinimix Gallbladder stone CT scan finding DIET: Clear liquid diet DVT PROPHYLAXIS: Lovenox GI PROPHYLAXIS:: Protonix BOWEL REGIMEN: CT scan shows, large stool burden dense stool. Fleet enema with lactulose CODE STATUS: Goal of care discussed for more than 20 minutes, DNR DISPOSITION: Med/surge Speaking with the daughter, she will like that the patient come back to hospice, social service consulted: hospice will be f/u at discharge Case discussed with Dr. Moe Plan discussed with: Patient, Other (rn) My Orders My Orders Orders - KAYLIN GO RESIDENT Procedure Category Date Status Time Notify Provider NOTICE 12/26/24 Transmitted Malnutrition 13:22 Increase Calorie NOURISH 12/26/24 Transmitted Intake 13:22 Nutritional NOURISH 12/26/24 Transmitted Supplements 13:22 Dietary NOTICE 12/26/24 Transmitted Recommendations 13:22 Cleanse Wound With MAIKOL 12/26/24 In Process Wound Clean 12:35 Dietary Evaluation Review Recommendations by RD: Increase Calorie Intake, Protein Supplementation, PPN/TPN Comments: 1) TPN supplementation if NPO continue 2) Advance diet as medically feasible 3) MVI 1 tab daily, VitC 500mg BID, zinc sulfate 220mg daily x 10days 4) Apollo 1 pk BID 5) Continue current plan of care Expected Outcomes/Goals: Pt will meet >75% estimated needs Fu 2-3 days Body Fat Depletion (Severe): Mod to Severe Depletion Muscle Mass (Severe): Mod to Severe Depletion Protein Calorie Malnutrition: Severe Is there a minimum of two crit: Yes Date of Service: Dec 27, 2024 Billing Provider: GAVIN MOE MD Common Visit Codes: [id number] INP/OBS CARE(HIGH) KAYLIN GO RESIDENT Dec 27, 2024 13:11 GAVIN MOE MD Dec 28, 2024 15:24
[2024-12-27] MEDS: Lidocaine/Epinephrine 1%-1:100,000 30ML VL ONE (13:53)
[2024-12-27] MEDS ORDERED: MIDAZOLAM HCL 2MG/2ML 2ml VIAL (1mg/ml) ONE (13:56)
[2024-12-27] MEDS ORDERED: fentaNYL CITRATE 100 MCG/2 ML VL ONE (13:56)
[2024-12-27] MEDS ORDERED: DexAMETHasone SOD PHOS 10MG/1ML VIAL INJ ONE (14:22)
[2024-12-27] MEDS ORDERED: PROPOFOL 10 MG/ML 20 ML IV ONE (14:22)
--- NOTE | 2024-12-27 15:52 | DVHOP2 ---
Operative Report - 2 Report Details Date: 12/27/24 Preop Diagnosis: Multiple sacral pressure ulcers, unstageable Postop Diagnosis: Stage IV sacral and left trochanteric pressure ulcers Surgeon: Donato Tesfaye MD Wax Pattern Repairer: None Anesthesiologist: Dr. Chamorro Anesthesia: Mac, Local Consent: The surgery and its risks including but not limited to infection, bleeding requiring possible blood transfusion with the risk of hepatitis or HIV infecti on, possible recurrent pressure ulcers without proper local wound care, possible perioperative AR or stroke were explained to the patient's daughter. She expressed verbal understanding and wished to proceed with the surgery. Complications: None Estimated Blood Loss: 10 mL Fluids: 250 mL Name of Procedure Performed Surgical debridement of sacral and left trochanteric necrotic stage IV pressure ulcers Procedure Details Procedure Details: After induction of monitored anesthesia, patient was 1st placed in right lateral decubitus position and her sacral region was prepped and draped in standard surgical fashion. Approximately 10 mL of 1% lidocaine with epinephrine was used as local anesthesia. There was a necrotic eschar covering the pressure ulcer in the sacrum. This was sharply debrided down to healthier appearing tissue with healthier bleeding. There was no obvious bony exposure. Sharp debridement was performed until all the necrotic tissue was removed. The skin, soft tissue and muscles were debrided away. The total size of the pressure ulcer in the sacral region measured 7 x 6 cm in size. The area was then checked for hemostasis and irrigated with diluted Betadine irrigation and packed with 4 x 4 gauze dressing. Patient was then turned over to her left lateral decubitus position and her right trochanteric region was prepped and draped in standard surgical fashion. 5 mL of 1% lidocaine with epinephrine was used as local anesthesia. In a similar fashion the necrotic eschar was excised down to healthier tissue. In the process skin subcutaneous tissue and muscles were debrided sharply. Area was checked for hemostasis and irrigated with Betadine irrigation. The size of the ulcer at the end of debridement was 4 x 3 cm in size. It was also packed with 4 x 4 gauze dressing. Surgical sites were cleaned and dried dressings were applied. Sponge, needle, instrument count at the end of the case were reported to be correct by the nursing staff. The patient tolerated procedure well and was awakened transferred to recovery in stable condition. Specimen: Gram stain and culture Condition Stable Disposition Still a Patient DONATO TESFAYE MD Dec 27, 2024 15:52
[2024-12-27] MEDS ORDERED: MORPHINE SULFATE INJ 2 MG/ml SYRG IV PRN (16:15)
[2024-12-27] MEDS: VANCOMYCIN 750MG KIT 100 ML IV SCH (17:02)
[2024-12-27] MEDS ORDERED: DEXTROSE (50%) 50ML SYRG IV SCH (22:00)
[2024-12-27] MEDS: AMINO ACID INFUSION IN D10W 2,000 ML IV SCH (22:00)
[2024-12-28] VITALS (9 sets, daily range): BP systolic 123–169; BP diastolic 68–85; PULSE 53–71; RESP 10–19; TEMP 94.1–98.1; O2SAT 98–100
[2024-12-28] MEDS: InsuLIN REG 1unit/0.01ml Soln (100units/ml) SC SCH
[2024-12-28] MEDS: ACCU-CHEK COMFORT CURVE STRIP VI SCH
[2024-12-28 07:06] LABS: Basophils # (auto) 0 10 ^3/uL (0-0.2); Basophils % (auto) 0.1 % (0.0-2.0); Eosinophils # (auto) 0 10 ^3/uL (0-0.8); Eosinophils % (auto) 0.3 % (0.0-7.0); Lymphocytes # (auto) 0.7 10 ^3/uL (0.4-5.4); Mean Corpuscular Hgb Conc. 29.8 g/dL (32.0-36.0); Monocytes # (auto) 0.1 10 ^3/uL (0-1.3); Neutrophils # (auto) 2.1 10 ^3/uL (1.6-8.6); Red Blood Cells 2.14 10^6/uL (4.0-5.20)
[2024-12-28 07:09] LABS: Hematocrit 20.8 % (36.0-46.0); Lymphocytes % (auto) 23.5 % (10.0-50.0); Mean Corpuscular Volume 97.3 fL (80.0-100.0); Neutrophils % (auto) 72.1 % (37.0-80.0); Nucleated Red Blood Cells % 0.3 %; Platelet Count (auto) 160 10^3/uL (140-450)
[2024-12-28 07:13] LABS: Hemoglobin 6.2 g/dL (12.2-16.2)
[2024-12-28 09:08] LABS: INR 1.28 (0.9-1.15); Partial Thromboplastin Time 36.3 SEC (24.5-34.5); Prothrombin Time 13.2 sec (9.3-11.8)
--- NOTE | 2024-12-28 09:08 | DVH ---
CLINICAL INFORMATION: Rule out cholecystitis. No other clinical information provided. TECHNIQUE: Grayscale sonographic imaging of the abdomen was performed, assisted by color Doppler catalina hnique. COMPARISON: None FINDINGS: Severely limited examination. Patient is contracted is limited ability to position the p atient for the examination. Liver, gallbladder, pancreas, and right kidney were not able to be visual ized. IMPRESSION: Nondiagnostic examination as described above
[2024-12-28 09:25] LABS: Ferritin 163.8 ng/mL (10-291)
[2024-12-28 09:36] LABS: % Iron Saturation 30.7 % (15-50)
--- NOTE | 2024-12-28 10:06 | DVHPNRES ---
Progress Note Date Seen: Dec 28, 2024 Resident Creating Document: SOO PARDO RESIDENT Has the PT tested + for MRSA If YES, has PT been informed?: No Medical Necessity Reason Pt with a Central, PICC or Fol: No Subjective Review of Systems This is a 79-year-old female nonverbal and bed ridden with past medical history of dementia, Parkinson disease, and hypertension brought to the hospital due to worsening of bedsore at sacral area. Per patient's daughter, she has sacral ulcer since 1 year but recently has worsened, and upon changing dressing 3 days back noticed purulent discharge with foul-smelling of ulcer. she was on hospice care 1 year back, discontinued hospice 4 months back. Per patient's daughter, she also has decreased oral intake. PMHx: Dementia, Parkinson disease, hypertension PSHx: Nonsignificant Social history: Patient is nonverbal, bedridden, lives with the daughter's at home. Denies previous history of smoking or any other drug use Home medication: Carbidopa/levodopa, gabapentin, Protonix, atorvastatin Allergic history: No known allergy 12/28-patient seen and examined at the bedside. Overnight patient had large amount of bright red blood out of sacral dressing. CBC was obtained, hemoglobin 6.2. One packed RBC ordered. Pending transfusion. Surgeon saw the patient this morning, changed and reinforced want racing with new for into 4 gauze and tape. Per surgeon, transfuse 1 unit of PRBC. Patient is A&O x1, on Clinimix. Retic count is 0.52. Platelet dropped to 160, WBC 3.0. Per home health care social worker note, patient's family has signed consents with [facility]. Objective vital signs Vital Sign Date Time Temp Pulse Resp B/P (MAP) Pulse Ox O2 Delivery O2 Flow Rate FiO2 12/28/24 09:00 54 12 144/78 (100) 99 12/28/24 05:00 98.1 98.1 12/27/24 20:00 Room Air* 0 21 Total Intake and Output 12/27/24 12/27/24 12/28/24 15:00 23:00 07:00 Intake Total 500 ml 450 ml 0 ml Balance 500 ml 450 ml 0 ml medications Current Medications Medications Dose Ordered Sig/Anastasia Route Start Time Stop Time Status Last Admin Dose Admin Pantoprazole Sodium 40 mg DAILY IV 12/26/24 10:00 12/27/24 12:45 40 MG Acetaminophen 650 mg Q4HP PRN PO 12/25/24 23:45 Vancomycin HCl 0 ml @ 0 mls/hr UD IV 12/26/24 00:30 Ceftriaxone Sodium 50 ml @ 100 mls/hr DAILY@09 IV 12/26/24 09:00 12/27/24 12:44 100 MLS/HR Dextrose 1,000 ml @ 75 mls/hr [id number] IV 12/26/24 12:30 12/27/24 10:34 75 MLS/HR Vancomycin HCl 100 ml @ 100 mls/hr DAILY@1700 IV 12/27/24 17:00 12/27/24 17:02 100 MLS/HR Potassium Chloride 100 ml @ 50 mls/hr Q2H IV 12/27/24 07:00 12/27/24 10:59 UNV Amino Acids 0 ml @ 0 mls/hr PER PHARMACY IV 12/27/24 11:30 UNV Amino Acids 0 ml @ 0 mls/hr PER PHARMACY IV 12/27/24 11:45 Amino Acids/ Electrolytes/ Dextrose 2,000 ml @ 41 mls/hr DAILY@2200 IV 12/27/24 22:00 12/27/24 22:00 41 MLS/HR Diagnostic Test (Pha) 1 strip Q6HR 12/28/24 00:00 12/28/24 06:00 1 STRIP Insulin Human Regular FOLLOW SLIDING SCALE Q6HR SC 12/28/24 00:00 Dextrose 50 ml UD IV 12/27/24 22:00 Morphine Sulfate 1 mg Q6HP PRN IV 12/27/24 16:15 Examination General Appearance: Alert, nonverbal, and cachectic HEENT: Atraumatic, PERRLA, EOMI, Mucous membrane moist/pink Respiratory: Clear to auscultation, Normal air movement Cardiovascular: Regular rate, Normal S1, Normal S2, No murmurs, no chest wall tenderness Abdominal: Normal bowel sounds, Soft, No tenderness, No hepatospenomegaly, No masses Extremities: No clubbing, No cyanosis, No edema, Normal pulses, No tenderness/swelling Skin: Grade 3-4 sacral area wound, with scant amount of purulent discharge, foul-smelling Neuro: Due to advanced Parkinson, has contracted limbs, neurology exam could not perform laboratory and microbiology Laboratory Tests 12/28/24 06:05 Test 12/28/24 06:05 Range/Units Serum Glucose Pending Microbiology Date/Time Source Procedure Growth Status 12/27/24 15:28 Buttock Right Gram Stain Pending Resulted 12/27/24 15:28 Buttock Right Anaerobic Culture Pending Resulted 12/27/24 15:28 Buttock Right Aerobic Culture - Preliminary Resulted 12/26/24 00:17 Blood Blood Culture - Preliminary NO GROWTH AFTER 48 HOURS OF INCUBATION. Resulted Labs and/or images reviewed: Labs reviewed by me, Image(s) reviewed by me Problem List/Assessment/Plan Problem List/Assessment/Plan 12/28-patient seen and examined at the bedside. Overnight patient had large amount of bright red blood out of sacral dressing. CBC was obtained, hemoglobin 6.2. One packed RBC ordered. Pending transfusion. Surgeon saw the patient this morning, changed and reinforced want racing with new for into 4 gauze and tape. Per surgeon, transfuse 1 unit of PRBC. Patient is A&O x1, on Clinimix. Retic count is 0.52. Platelet dropped to 160, WBC 3.0. Per home health care social worker note, patient's family has signed consents with [facility]. 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 Bicytopenia, inadequate bone marrow response 1 unit PRBC ordered, transfusion pending. Surgeon assessed the patient, change wound dressings. Retic count 0.5. Fibrinogen level 199, follow up with CMP History of Parkinson, continue carbidopa/levodopa Advanced dementia History of hypertension, the continue amlodipine Mild anemia Severe malnutrition Clinimix Gallbladder stone CT scan finding Liver ultrasound unremarkable given severely limited examination, patient was contracted. DIET: Clear liquid diet DVT PROPHYLAXIS: Lovenox GI PROPHYLAXIS:: Protonix BOWEL REGIMEN: CT scan shows, large stool burden dense stool. Fleet enema with lactulose CODE STATUS: Goal of care discussed for more than 20 minutes, DNR DISPOSITION: Med/surge Speaking with the daughter, she will like that the patient come back to hospice, social service consulted: hospice will be f/u at discharge Per home health care social worker note, patient's family has signed consents with [facility]. Case discussed with Dr. Thomas Plan discussed with: Patient My Orders My Orders Orders - SOO PARDO Procedure Category Date Status Time LIVER US 12/28/24 Resulted 07:30 Packedcells -Active BBK 12/28/24 Logged Bleeding 07:30 Iron Panel LAB 12/28/24 In Process 07:30 Ferritin LAB 12/28/24 In Process 07:30 Lactate Dehydrogenase LAB 12/28/24 Logged 07:30 Vitamin B12 LAB 12/28/24 In Process 07:30 Folate (Folic Acid) LAB 12/28/24 In Process 07:30 Dietary Evaluation Review Recommendations by RD: Increase Calorie Intake, Protein Supplementation, PPN/TPN Comments: 1) TPN supplementation if NPO continue 2) Advance diet as medically feasible 3) MVI 1 tab daily, VitC 500mg BID, zinc sulfate 220mg daily x 10days 4) Apollo 1 pk BID 5) Continue current plan of care Expected Outcomes/Goals: Pt will meet >75% estimated needs Fu 2-3 days Body Fat Depletion (Severe): Mod to Severe Depletion Muscle Mass (Severe): Mod to Severe Depletion Protein Calorie Malnutrition: Severe Is there a minimum of two crit: Yes Date of Service: Dec 28, 2024 Billing Provider: GAVIN THOMAS MD Common Visit Codes: [id number] INP/OBS CARE(HIGH) SOO PARDO Dec 28, 2024 10:05 GAVIN THOMAS MD Dec 28, 2024 15:24
[2024-12-28 11:32] LABS: Anion Gap 6 (5-15)
[2024-12-28 11:37] LABS: Calcium 8.3 mg/dL (8.7-10.4); Carbon Dioxide 27 mmol/L (20-31); Chloride 102 mmol/L (98-107); Potassium 3.7 mmol/L (3.5-5.1); Sodium 135 mmol/L (136-145)
[2024-12-28 11:38] LABS: BUN/Creatinine Ratio 42.1 (10.0-20.0)
[2024-12-28 11:42] LABS: Alanine Aminotransferase 12 U/L (7-40); Albumin 2.8 g/dL (3.2-4.8); Alkaline Phosphatase 67 U/L (46-116); Aspartate Aminotransferase 14 U/L (13-40); Bilirubin, Total 0.4 mg/dL (0.2-1.0); Blood Urea Nitrogen 32 mg/dL (9-23); Glucose 120 mg/dL (74-106); Magnesium 1.9 mg/dL (1.6-2.6); Phosphorus 2.4 mg/dL (2.4-5.1); Total Protein 6.1 g/dL (5.7-8.2)
--- NOTE | 2024-12-28 13:47 | DVHPN2 ---
Progress Note - Dictate Date Seen: Dec 28, 2024 Has the PT tested + for MRSA If YES, has PT been informed?: No Medical Necessity Reason Pt with a Central, PICC or Fol: No Subjective E: bleeding from sacral wound. Hgb dropped from 8.1 to 6.2. 1 u PRBC ordered. vital signs Vital Sign Date Time Temp Pulse Resp B/P (MAP) Pulse Ox O2 Delivery O2 Flow Rate FiO2 12/28/24 09:00 54 12 144/78 (100) 99 12/28/24 05:00 98.1 98.1 12/27/24 20:00 Room Air* 0 21 Total Intake and Output 12/27/24 12/27/24 12/28/24 15:00 23:00 07:00 Intake Total 500 ml 450 ml 0 ml Balance 500 ml 450 ml 0 ml medications Current Medications Medications Dose Ordered Sig/Anastasia Route Start Time Stop Time Status Last Admin Dose Admin Pantoprazole Sodium 40 mg DAILY IV 12/26/24 10:00 12/28/24 13:21 40 MG Acetaminophen 650 mg Q4HP PRN PO 12/25/24 23:45 Vancomycin HCl 0 ml @ 0 mls/hr UD IV 12/26/24 00:30 Ceftriaxone Sodium 50 ml @ 100 mls/hr DAILY@09 IV 12/26/24 09:00 12/28/24 13:21 100 MLS/HR Dextrose 1,000 ml @ 75 mls/hr [id number] IV 12/26/24 12:30 12/27/24 10:34 75 MLS/HR Vancomycin HCl 100 ml @ 100 mls/hr DAILY@1700 IV 12/27/24 17:00 12/27/24 17:02 100 MLS/HR Potassium Chloride 100 ml @ 50 mls/hr Q2H IV 12/27/24 07:00 12/27/24 10:59 UNV Amino Acids 0 ml @ 0 mls/hr PER PHARMACY IV 12/27/24 11:30 UNV Amino Acids 0 ml @ 0 mls/hr PER PHARMACY IV 12/27/24 11:45 Amino Acids/ Electrolytes/ Dextrose 2,000 ml @ 41 mls/hr DAILY@2200 IV 12/27/24 22:00 12/27/24 22:00 41 MLS/HR Diagnostic Test (Pha) 1 strip Q6HR 12/28/24 00:00 12/28/24 12:00 1 STRIP Insulin Human Regular FOLLOW SLIDING SCALE Q6HR SC 12/28/24 00:00 Dextrose 50 ml UD IV 12/27/24 22:00 Morphine Sulfate 1 mg Q6HP PRN IV 12/27/24 16:15 objective GEN: NAD SACRUM: min oozing from wound. no arterial bleeding. repacked with pressure dressing. laboratory and microbiology Laboratory Tests 12/28/24 10:56 12/28/24 06:05 Test 12/28/24 10:56 Range/Units Serum Glucose 120 H 74-106 mg/dL Assessment/Plan A: 1. s/p surgical debridement of sacral ulcer, stage 4 with postop bleeding P: 1. 1 u PRBC 2. hold lovenox. Dietary Evaluation Review Recommendations by RD: Increase Calorie Intake, Protein Supplementation, PPN/TPN Comments: 1) TPN supplementation if NPO continue 2) Advance diet as medically feasible 3) MVI 1 tab daily, VitC 500mg BID, zinc sulfate 220mg daily x 10days 4) Apollo 1 pk BID 5) Continue current plan of care Expected Outcomes/Goals: Pt will meet >75% estimated needs Fu 2-3 days Body Fat Depletion (Severe): Mod to Severe Depletion Muscle Mass (Severe): Mod to Severe Depletion Protein Calorie Malnutrition: Severe Is there a minimum of two crit: Yes Plan discussed with: Other DONATO PENA MD Dec 28, 2024 13:47
[2024-12-28 14:19] LABS: Hematocrit 20.9 % (36.0-46.0)
--- NOTE | 2024-12-28 15:52 | MEDREC ---
[facility] ASP Intervention Section I [facility] ASP Intervention: Deescalate AB based on CS (THE PRELIMINARY WOUND CULTURE SHOWED PSEUDOMONAS. PLEASE CHANGE ANTIBIOTIC BASED ON CULTURE RESULT ) TIFFANIE ALEGRE Dec 28, 2024 15:51
[2024-12-28] MEDS: VANCOMYCIN 750mg/150ml 150 ML IV SCH (17:00)
[2024-12-28] MEDS: AMINO ACID INFUSION IN D5W 1,000 ML IV SCH (22:00)
[2024-12-29 01:00] VITALS: BP 142/71; PULSE 61; RESP 10; O2SAT 98
[2024-12-29 05:00] VITALS: BP 149/74; PULSE 66; RESP 12; TEMP 98.6; O2SAT 97
[2024-12-29 07:56] LABS: Basophils # (auto) 0 10 ^3/uL (0-0.2); Basophils % (auto) 0.2 % (0.0-2.0); Eosinophils # (auto) 0 10 ^3/uL (0-0.8); Eosinophils % (auto) 0.3 % (0.0-7.0); Hematocrit 27.8 % (36.0-46.0); Hemoglobin 9.5 g/dL (12.2-16.2); Lymphocytes % (auto) 29.3 % (10.0-50.0); Mean Corpuscular Hemoglobin 28.8 pg (28.0-32.0); Mean Corpuscular Hgb Conc. 34.1 g/dL (32.0-36.0); Mean Corpuscular Volume 84.6 fL (80.0-100.0); Monocytes # (auto) 0.2 10 ^3/uL (0-1.3); Monocytes % (auto) 5.9 % (0.0-12.0); Neutrophils # (auto) 2.2 10 ^3/uL (1.6-8.6); Neutrophils % (auto) 64.3 % (37.0-80.0); Nucleated Red Blood Cells % 0.1 %; Platelet Count (auto) 160 10^3/uL (140-450); Red Blood Cells 3.29 10^6/uL (4.0-5.20); Red Cell Distribution Width 14.3 % (11.8-14.3); White Blood Cell 3.5 10^3/uL (4.4-10.8)
[2024-12-29 08:30] VITALS: O2SAT 100
[2024-12-29 08:33] VITALS: BP 123/71; PULSE 72; RESP 13; TEMP 100.3; O2SAT 97
[2024-12-29 08:38] LABS: Alanine Aminotransferase 13 U/L (7-40); Alkaline Phosphatase 64 U/L (46-116); Anion Gap 6 (5-15); Aspartate Aminotransferase 14 U/L (13-40); BUN/Creatinine Ratio 54.5 (10.0-20.0); Blood Urea Nitrogen 36 mg/dL (9-23); Carbon Dioxide 26 mmol/L (20-31); Chloride 102 mmol/L (98-107); Glucose 83 mg/dL (74-106); Magnesium 1.8 mg/dL (1.6-2.6); Potassium 3.6 mmol/L (3.5-5.1); Sodium 134 mmol/L (136-145)
[2024-12-29 08:39] LABS: Albumin 2.8 g/dL (3.2-4.8); Bilirubin, Total 0.4 mg/dL (0.2-1.0); Calcium 8.1 mg/dL (8.7-10.4); Phosphorus 2.1 mg/dL (2.4-5.1)
--- NOTE | 2024-12-29 10:43 | DVHPN2 ---
Progress Note - Dictate Date Seen: Dec 29, 2024 Has the PT tested + for MRSA If YES, has PT been informed?: No Medical Necessity Reason Pt with a Central, PICC or Fol: No Subjective E: no more bleeding from surgical site but developed resp distress with desaturation. now on NRB vital signs Vital Sign Date Time Temp Pulse Resp B/P (MAP) Pulse Ox O2 Delivery O2 Flow Rate FiO2 12/29/24 08:33 100.3 72 13 123/71 (88) 97 100.3 12/28/24 20:00 Room Air* 0 21 Total Intake and Output 12/28/24 12/28/24 12/29/24 15:00 23:00 07:00 Intake Total 350 ml 0 ml Output Total 200 ml Balance 350 ml -200 ml medications Current Medications Medications Dose Ordered Sig/Anastasia Route Start Time Stop Time Status Last Admin Dose Admin Pantoprazole Sodium 40 mg DAILY IV 12/26/24 10:00 12/28/24 13:21 40 MG Acetaminophen 650 mg Q4HP PRN PO 12/25/24 23:45 Hold Vancomycin HCl 0 ml @ 0 mls/hr UD IV 12/26/24 00:30 Ceftriaxone Sodium 50 ml @ 100 mls/hr DAILY@09 IV 12/26/24 09:00 12/28/24 13:21 100 MLS/HR Dextrose 1,000 ml @ 75 mls/hr [id number] IV 12/26/24 12:30 12/27/24 10:34 75 MLS/HR Potassium Chloride 100 ml @ 50 mls/hr Q2H IV 12/27/24 07:00 12/27/24 10:59 UNV Amino Acids 0 ml @ 0 mls/hr PER PHARMACY IV 12/27/24 11:30 UNV Amino Acids 0 ml @ 0 mls/hr PER PHARMACY IV 12/27/24 11:45 Diagnostic Test (Pha) 1 strip Q6HR 12/28/24 00:00 12/29/24 06:00 1 STRIP Insulin Human Regular FOLLOW SLIDING SCALE Q6HR SC 12/28/24 00:00 Dextrose 50 ml UD IV 12/27/24 22:00 Morphine Sulfate 1 mg Q6HP PRN IV 12/27/24 16:15 Amino Acids/ Electrolytes/ Dextrose 2,000 ml @ 41 mls/hr DAILY@2200 IV 12/29/24 22:00 Amino Acids 1,000 ml @ 41 mls/hr DAILY@2200 IV 12/28/24 22:00 12/29/24 21:59 Vancomycin HCl 150 ml @ 150 mls/hr DAILY@1700 IV 12/28/24 17:00 Ketorolac Tromethamine 15 mg Q6HPRN IV 12/29/24 10:30 01/03/25 10:29 objective GEN: NAD SACRUM: dressings intact. laboratory and microbiology Laboratory Tests 12/29/24 07:35 Test 12/29/24 07:35 Range/Units Serum Glucose 83 74-106 mg/dL Assessment/Plan A: 1. s/p surgical debridement of sacral ulcer, stage 4 with postop bleeding 2. resp distress P: 1. hold dressing change for 1 more day Dietary Evaluation Review Recommendations by RD: Protein Supplementation Comments: 1) Increase TPN to meet at least 75 of daily estimated needs while patient is NPO 2) Agree with previous recommendations by Gabe Vernon RD on 12/26 - MVI 1 tab daily, VitC 500mg BID, zinc sulfate 220mg daily x 10days, Apollo 1 pk BID 3) Consider ProStat @ 30 mL bid d/t multiple stage 4 pressure injuries and malnutrition - patient will benefit from additional calories 4) Advance to 2g Na diet when medically feasible, per [facility] approval. When patient diet advance to PO - consider oral nutrition supplements to promote weight gain Expected Outcomes/Goals: 1) labs to improve 2) diet to advance 3) f/u in 3 days Body Fat Depletion (Severe): Mod to Severe Depletion Muscle Mass (Severe): Mod to Severe Depletion Protein Calorie Malnutrition: Severe Is there a minimum of two crit: Yes Plan discussed with: Other CC Plasma Assessment Blood Product Administration S: [id number] DONATO PENA MD Dec 29, 2024 10:43
[2024-12-29 10:53] LABS: Erythrocyte Sedimentation Rate 17 mm/hr (0-20)
--- NOTE | 2024-12-29 11:37 | DVHPNRES ---
Progress Note Date Seen: Dec 29, 2024 Resident Creating Document: KAYLIN GO RESIDENT Has the PT tested + for MRSA If YES, has PT been informed?: No Medical Necessity Reason Pt with a Central, PICC or Fol: No Subjective Review of Systems This is a 79-year-old female nonverbal and bed ridden with past medical history of dementia, Parkinson disease, and hypertension brought to the hospital due to worsening of bedsore at sacral area. Per patient's daughter, she has sacral ulcer since 1 year but recently has worsened, and upon changing dressing 3 days back noticed purulent discharge with foul-smelling of ulcer. she was on hospice care 1 year back, discontinued hospice 4 months back. Per patient's daughter, she also has decreased oral intake. PMHx: Dementia, Parkinson disease, hypertension PSHx: Nonsignificant Social history: Patient is nonverbal, bedridden, lives with the daughter's at home. Denies previous history of smoking or any other drug use Home medication: Carbidopa/levodopa, gabapentin, Protonix, atorvastatin Allergic history: No known allergy Patient had a Surgical debridement of sacral and left trochanteric necrotic stage IV pressure ulcers on 12/27, cultures came positive for psudeomona and ecoli, patient is started on cefepime today, dc ceftrtiaxone, continue vancomycin. Patient is on clinimix, patient is also accepted in home hospice Yesterday hb 6.2, 1rbc given, today patient had an episode of o2 saturation below 75%, patient responded to furosemide IV and high O2, but speaking with the family, if an episode like this happen again, will start comfort measures with morphine and ativan, right now ketorolac schedule for pain management Objective vital signs Vital Sign Date Time Temp Pulse Resp B/P (MAP) Pulse Ox O2 Delivery O2 Flow Rate FiO2 12/29/24 08:33 100.3 72 13 123/71 (88) 97 100.3 12/28/24 20:00 Room Air* 0 21 Total Intake and Output 12/28/24 12/28/24 12/29/24 15:00 23:00 07:00 Intake Total 350 ml 0 ml Output Total 200 ml Balance 350 ml -200 ml medications Current Medications Medications Dose Ordered Sig/Anastasia Route Start Time Stop Time Status Last Admin Dose Admin Pantoprazole Sodium 40 mg DAILY IV 12/26/24 10:00 12/28/24 13:21 40 MG Acetaminophen 650 mg Q4HP PRN PO 12/25/24 23:45 Hold Vancomycin HCl 0 ml @ 0 mls/hr UD IV 12/26/24 00:30 Ceftriaxone Sodium 50 ml @ 100 mls/hr DAILY@09 IV 12/26/24 09:00 12/28/24 13:21 100 MLS/HR Dextrose 1,000 ml @ 75 mls/hr [id number] IV 12/26/24 12:30 12/27/24 10:34 75 MLS/HR Potassium Chloride 100 ml @ 50 mls/hr Q2H IV 12/27/24 07:00 12/27/24 10:59 UNV Amino Acids 0 ml @ 0 mls/hr PER PHARMACY IV 12/27/24 11:30 UNV Amino Acids 0 ml @ 0 mls/hr PER PHARMACY IV 12/27/24 11:45 Diagnostic Test (Pha) 1 strip Q6HR 12/28/24 00:00 12/29/24 06:00 1 STRIP Insulin Human Regular FOLLOW SLIDING SCALE Q6HR SC 12/28/24 00:00 Dextrose 50 ml UD IV 12/27/24 22:00 Morphine Sulfate 1 mg Q6HP PRN IV 12/27/24 16:15 Amino Acids/ Electrolytes/ Dextrose 2,000 ml @ 41 mls/hr DAILY@2200 IV 12/29/24 22:00 Amino Acids 1,000 ml @ 41 mls/hr DAILY@2200 IV 12/28/24 22:00 12/29/24 21:59 Vancomycin HCl 150 ml @ 150 mls/hr DAILY@1700 IV 12/28/24 17:00 Ketorolac Tromethamine 15 mg Q6HPRN IV 12/29/24 10:30 01/03/25 10:29 Examination General Appearance: Alert, nonverbal, and cachectic HEENT: Atraumatic, PERRLA, EOMI, Mucous membrane moist/pink Respiratory: Clear to auscultation, Normal air movement Cardiovascular: Regular rate, Normal S1, Normal S2, No murmurs, no chest wall tenderness Abdominal: Normal bowel sounds, Soft, No tenderness, No hepatospenomegaly, No masses Extremities: No clubbing, No cyanosis, No edema, Normal pulses, No tenderness/swelling Skin: Grade 3-4 sacral area wound, dry without bleeding , foul-smelling Neuro: Due to advanced Parkinson, has contracted limbs, neurology exam could not perform laboratory and microbiology Laboratory Tests 12/29/24 07:35 Test 12/29/24 07:35 Range/Units Serum Glucose 83 74-106 mg/dL Microbiology Date/Time Source Procedure Growth Status 12/27/24 15:28 Buttock Right Gram Stain - Final Resulted 12/27/24 15:28 Buttock Right Anaerobic Culture Pending Resulted 12/27/24 15:28 Aerobic Culture - Preliminary Escherichia coli Resulted 12/26/24 00:17 Blood Blood Culture - Preliminary NO GROWTH AFTER 72 HOURS OF INCUBATION. Resulted Problem List/Assessment/Plan Problem List/Assessment/Plan s/p Surgical debridement of sacral and left trochanteric necrotic stage IV pressure ulcers on 12/27 Decubitus ulcer, grade 3-4 Possible infected decubitus ulcer Wound culture, wound consultation: cultures came positive for pseudomona and ecoli, patient is started on cefepime today, dc ceftrtiaxone, continue vancomycin Surgical consultation: Surgical debridement of sacral and left trochanteric necrotic stage IV pressure ulcers MRSA nares IV fluid Wound dressing History of Parkinson, continue carbidopa/levodopa Advanced dementia History of hypertension, the continue amlodipine Mild anemia Severe malnutrition Clinimix Gallbladder stone CT scan finding Patient had a Surgical debridement of sacral and left trochanteric necrotic stage IV pressure ulcers on 12/27, cultures came positive for pseudomona and ecoli, patient is started on cefepime today, dc ceftriaxone, continue vancomycin. Patient is on clinimix, patient is also accepted in home hospice Yesterday hb 6.2, 1rbc given, today patient had an episode of o2 saturation below 75%, patient responded to furosemide IV and high O2, but speaking with the family, if an episode like this happen again, will start comfort measures with morphine and ativan, right now ketorolac schedule for pain management DIET: Clear liquid diet DVT PROPHYLAXIS: Lovenox GI PROPHYLAXIS:: Protonix BOWEL REGIMEN: CT scan shows, large stool burden dense stool. Fleet enema with lactulose CODE STATUS: Goal of care discussed for more than 20 minutes, DNR DISPOSITION: Med/surge Speaking with the daughter, she will like that the patient come back to hospice, social service consulted: hospice will be f/u at discharge Case discussed with Dr. Moe Plan discussed with: Patient, Other (rn) My Orders My Orders Orders - KAYLIN GO RESIDENT Procedure Category Date Status Time Ketorolac Injection PHA 12/29/24 In Process (Toradol Injection) 10:30 Dietary Evaluation Review Recommendations by RD: Protein Supplementation Comments: 1) Increase TPN to meet at least 75 of daily estimated needs while patient is NPO 2) Agree with previous recommendations by Gabe Vernon RD on 12/26 - MVI 1 tab daily, VitC 500mg BID, zinc sulfate 220mg daily x 10days, Apollo 1 pk BID 3) Consider ProStat @ 30 mL bid d/t multiple stage 4 pressure injuries and malnutrition - patient will benefit from additional calories 4) Advance to 2g Na diet when medically feasible, per [employer] approval. When patient diet advance to PO - consider oral nutrition supplements to promote weight gain Expected Outcomes/Goals: 1) labs to improve 2) diet to advance 3) f/u in 3 days Body Fat Depletion (Severe): Mod to Severe Depletion Muscle Mass (Severe): Mod to Severe Depletion Protein Calorie Malnutrition: Severe Is there a minimum of two crit: Yes CC Plasma Assessment Blood Product Administration S: [id number] Date of Service: Dec 29, 2024 Billing Provider: GAVIN MOE MD Common Visit Codes: [id number] INP/OBS CARE(HIGH) KAYLIN GO RESIDENT Dec 29, 2024 11:37 GAVIN MOE MD Dec 30, 2024 13:44
[2024-12-29] MEDS: KETOROLAC TROMETH 30 MG/ML 1ML VIAL IV SCH ×2 (12:07→18:22)
[2024-12-29] MEDS: POTASSIUM PHOSPHATE 22 MEQ in SODIUM CHL 0.9% 100 ML IV ONE (15:00)
[2024-12-29] MEDS: CEFEPIME 1GM/ 50ML 50 ML IV ONE (18:22)
[2024-12-29] MEDS: CEFEPIME 1GM/ 50ML 50 ML IV SCH (21:20)
[2024-12-29] MEDS ORDERED: hydrALAZINE HCL 20 MG/ML VL IV ONE (21:30)
[2024-12-29] MEDS: hydrALAZINE HCL 20 MG/ML VL IV ONE (22:03)
[2024-12-29] MEDS: AMINO ACID INFUSION IN D10W 1,000 ML IV SCH (22:03)
[2024-12-30 07:22] LABS: Potassium 3.8 mmol/L (3.5-5.1)
[2024-12-30 07:28] LABS: BUN/Creatinine Ratio 58.1 (10.0-20.0); Calcium 8.4 mg/dL (8.7-10.4)
[2024-12-30 07:29] LABS: Magnesium 1.7 mg/dL (1.6-2.6)
[2024-12-30 07:30] LABS: Albumin 2.7 g/dL (3.2-4.8)
[2024-12-30 07:31] LABS: Phosphorus 2.1 mg/dL (2.4-5.1)
[2024-12-30 07:45] VITALS: BP 121/74; PULSE 70; RESP 12; O2SAT 100
[2024-12-30 08:00] VITALS: PULSE 72; RESP 14; O2SAT 100
[2024-12-30 09:00] VITALS: BP 128/69; PULSE 72; RESP 14; TEMP 98.3; O2SAT 100
[2024-12-30 10:24] LABS: Folate (Folic Acid) 4.5 ng/mL (>5.38)
[2024-12-30] MEDS ORDERED: SODIUM PHOSPHATES 40 MEQ in D5W 5% 250 ML IV ONE (11:00)
[2024-12-30 13:00] VITALS: BP 146/75; PULSE 69; RESP 14; TEMP 98.2; O2SAT 100
[2024-12-30 15:57] VITALS: BP 128/69; PULSE 72; RESP 14; TEMP 98.6; O2SAT 100
[2024-12-30 17:05] VITALS: BP 122/65; PULSE 63; RESP 14; TEMP 97; O2SAT 100
--- NOTE | 2024-12-30 17:27 | DVHDSRES ---
Discharge Summary Date of Admission Resident Creating Document: PARADA EdinKAYLIN RESIDENT Dec 25, 2024 at 23:11 Date of Discharge: Dec 30, 2024 Admitting Diagnosis s/p Surgical debridement of sacral and left trochanteric necrotic stage IV pressure ulcers on 12/27 Labs/Diagnostic Data: Laboratory Results Test 12/30/24 12:26 12/30/24 06:22 12/29/24 07:35 12/28/24 16:08 POC Glucose 72 mg/dl (70-106) Sodium Level 132 mmol/L (136-145) Potassium Level 3.8 mmol/L (3.5-5.1) Chloride Level 103 mmol/L (98-107) Carbon Dioxide Level 23 mmol/L (20-31) Anion Gap 6 (5-15) Blood Urea Nitrogen 43 mg/dL (9-23) Creatinine 0.74 mg/dL (0.550-1.02) Estimated GFR () 98 mL/min Estimated GFR (Non- 81 mL/min BUN/Creatinine Ratio 58.1 (10.0-20.0) Serum Glucose 93 mg/dL (74-106) Calcium Level 8.4 mg/dL (8.7-10.4) Phosphorus Level 2.1 mg/dL (2.4-5.1) Magnesium Level 1.7 mg/dL (1.6-2.6) Albumin 2.7 g/dL (3.2-4.8) White Blood Count 3.5 10^3/uL (4.4-10.8) Red Blood Count 3.29 10^6/uL (4.0-5.20) Hemoglobin 9.5 g/dL (12.2-16.2) Hematocrit 27.8 % (36.0-46.0) Mean Corpuscular Volume 84.6 fL (80.0-100.0) Mean Corpuscular Hemoglobin 28.8 pg (28.0-32.0) Mean Corpuscular Hemoglobin Concent 34.1 g/dL (32.0-36.0) Red Cell Distribution Width 14.3 % (11.8-14.3) Platelet Count 160 10^3/uL (140-450) Mean Platelet Volume 8.1 fL (6.9-10.8) Neutrophils (%) (Auto) 64.3 % (37.0-80.0) Lymphocytes (%) (Auto) 29.3 % (10.0-50.0) Monocytes (%) (Auto) 5.9 % (0.0-12.0) Eosinophils (%) (Auto) 0.3 % (0.0-7.0) Basophils (%) (Auto) 0.2 % (0.0-2.0) Neutrophils # (Auto) 2.2 10 ^3/uL (1.6-8.6) Lymphocytes # (Auto) 1.0 10 ^3/uL (0.4-5.4) Monocytes # (Auto) 0.2 10 ^3/uL (0-1.3) Eosinophils # (Auto) 0 10 ^3/uL (0-0.8) Basophils # (Auto) 0 10 ^3/uL (0-0.2) Nucleated Red Blood Cells 0.1 % Erythrocyte Sedimentation Rate 17 mm/hr (0-20) Glomerular Filtration Rate Calc 90 mL/min (>90) Total Bilirubin 0.4 mg/dL (0.2-1.0) Aspartate Amino Transferase (AST) 14 U/L (13-40) Alanine Aminotransferase (ALT) 13 U/L (7-40) Alkaline Phosphatase 64 U/L (46-116) C-Reactive Protein High Sensitivity 1.53 mg/dL (<1.0) Total Protein 6.0 g/dL (5.7-8.2) Vancomycin Level Trough 10.9 ug/mL (5-10) Test 12/28/24 10:56 12/28/24 06:05 12/27/24 11:10 12/26/24 09:06 Lactate Dehydrogenase 222 U/L (120-246) Reticulocyte Count (auto) 0.52 % (0.5-1.5) Prothrombin Time 13.2 sec (9.3-11.8) Prothrombin Time INR 1.28 (0.9-1.15) Activated Partial Thromboplast Time 36.3 SEC (24.5-34.5) Fibrinogen 199 mg/dL (177-375) Iron Level 51 ug/dL (50-170) Total Iron Binding Capacity 166 ug/dL (250-425) Percent Iron Saturation 30.7 % (15-50) Ferritin 163.8 ng/mL (10-291) Vitamin B12 Level 1547 pg/mL (211-911) Folic Acid 4.50 ng/mL (>5.38) SARS-CoV-2 Antigen (Rapid) Negative (NEGATIVE) Hemoglobin A1c 5.9 % A1C (<5.7) Test 12/25/24 20:05 Lactic Acid Level 1.6 mmol/L (0.4-2.0) Other Laboratory Tests 12/30/24 06:22 12/29/24 07:35 Brief Hx & Hospital Course: This is a 79-year-old non-verbal, bedbound female with a history of dementia, Parkinsons disease, and hypertension, admitted due to worsening sacral and left trochanteric necrotic pressure ulcers. She underwent surgical debridement of these wounds on 12/27, and cultures grew pseudomonas, ESBL-producing organisms, and coliform bacteria. She was started on cefepime and vancomycin, but given her poor prognosis, no IV antibiotics were continued for home management. She also experienced an episode of hypoxia with an oxygen saturation drop below 75%, which responded to furosemide and high-flow oxygen. The patient is also clinically declining, with worsening oral intake and overall frailty, making her a hospice candidate. She had previously been in home hospice but was readmitted due to worsening wounds and suspected infection. The team discussed goals of care with her family, and given her advanced illness, they agreed to transition her back to hospice. She remains non-verbal, and her care is focused on symptom relief and dignity at the end of life. General Appearance: Alert, nonverbal, and cachectic HEENT: Atraumatic, PERRLA, EOMI, Mucous membrane moist/pink Respiratory: Clear to auscultation, Normal air movement Cardiovascular: Regular rate, Normal S1, Normal S2, No murmurs, no chest wall tenderness Abdominal: Normal bowel sounds, Soft, No tenderness, No hepatospenomegaly, No masses Extremities: No clubbing, No cyanosis, No edema, Normal pulses, No tenderness/swelling Skin: Grade 3-4 sacral area wound, dry without bleeding , foul-smelling Neuro: Due to advanced Parkinson, has contracted limbs, neurology exam could not perform Case discussed with Dr Taylor Consults/Reason for consult surgery due to decubitus ulcers Operations or Procedures Name of Procedure Performed Surgical debridement of sacral and left trochanteric necrotic stage IV pressure ulcers Procedure Details Procedure Details: After induction of monitored anesthesia, patient was 1st placed in right lateral decubitus position and her sacral region was prepped and draped in standard surgical fashion. Approximately 10 mL of 1% lidocaine with epinephrine was used as local anesthesia. There was a necrotic eschar covering the pressure ulcer in the sacrum. This was sharply debrided down to healthier appearing tissue with healthier bleeding. There was no obvious bony exposure. Sharp debridement was performed until all the necrotic tissue was removed. The skin, soft tissue and muscles were debrided away. The total size of the pressure ulcer in the sacral region measured 7 x 6 cm in size. The area was then checked for hemostasis and irrigated with diluted Betadine irrigation and packed with 4 x 4 gauze dressing. Patient was then turned over to her left lateral decubitus position and her right trochanteric region was prepped and draped in standard surgical fashion. 5 mL of 1% lidocaine with epinephrine was used as local anesthesia. In a similar fashion the necrotic eschar was excised down to healthier tissue. In the process skin subcutaneous tissue and muscles were debrided sharply. Area was checked for hemostasis and irrigated with Betadine irrigation. The size of the ulcer at the end of debridement was 4 x 3 cm in size. It was also packed with 4 x 4 gauze dressing. Surgical sites were cleaned and dried dressings were applied. Sponge, needle, instrument count at the end of the case were reported to be correct by the nursing staff. The patient tolerated procedure well and was awakened transferred to recovery in stable condition. Specimen: Gram stain and culture Condition Stable Condition at Discharge: Stable Final Diagnosis/Problems List s/p Surgical debridement of sacral and left trochanteric necrotic stage IV pressure ulcers on 12/27 Decubitus ulcer, grade 3-4 Possible infected decubitus ulcer History of Parkinson Severe malnutrition Advanced dementia History of hypertension Discharge Disposition: Hospice - Home Discharge Instruct/Medications Diet: See Comment Diet comment: per hospice Activity: No Restrictions, As Tolerated Follow Up/Referral: per hospice Medications: per hospice Discharge Statement: "Patient was advised to return to the ER or call 911 if any headaches, dizziness, shortness of breath, chest pain, abdominal pain, bleeding, fevers, or worsening of medical condition. Patient was counseled about treatment plan, medications, possible side effects, patientverbalized understanding. All questions were answered to the best of my ability. This discharge took greater then 30 minutes in planning, reviewing documentation, counseling the patient, and discussing with other team members." ASSESSMENT ASSESSMENT Assessment Stage IV sacral and left trochanteric pressure ulcers Date of Service: Dec 30, 2024 Billing Provider: YASH TAYLOR DO Common Visit Codes: 86918-MOF/OBS DISCH DAY >30min KAYLIN GO RESIDENT Dec 30, 2024 17:27 YASH TAYLOR DO Jan 01, 2025 16:43
--- NOTE | 2024-12-30 18:15 | MEDREC ---
[facility] Intervention Section I [facility] Intervention: Review courses of therapy (PLEASE CONSIDER REVIEWING COURSE OF THERAPY ACCORDING TO CULTURE RESULTS ) Assessment of apprpriate abx f: Skin & soft tissue infect GEENA HENDRIX PHARMACIST Dec 30, 2024 18:15
== END 2024-12-30 19:25 | disposition hospice, home (50) | DRG 579 ==
LOC: ER 19:10 → OVERFLOW 23:11 → WEST WING 12-26 03:51
PROVIDERS: ADMIT Internal Medicine; ATTEND Internal Medicine
PROC: 0KBP0ZZ Excision of Left Hip Muscle, Open Approach (ICD-10-PCS; 2024-12-27)
PROC: 0KBN0ZZ Excision of Right Hip Muscle, Open Approach (ICD-10-PCS; 2024-12-27)
PROC: 0KBP0ZZ Excision of Left Hip Muscle, Open Approach (ICD-10-PCS; principal; 2024-12-27 15:04)
PROC: 30233N1 Transfusion of Nonautologous Red Blood Cells into Peripheral Vein, Percutaneous Approach (ICD-10-PCS; 2024-12-28)
DX: L89.154 Pressure ulcer of sacral region, stage 4 (principal); E43 Unspecified severe protein-calorie malnutrition; D62 Acute posthemorrhagic anemia; Z68.1 Body mass index [BMI] 19.9 or less, adult; L89.224 Pressure ulcer of left hip, stage 4; Z20.822 Contact with and (suspected) exposure to COVID-19; I10 Essential (primary) hypertension; K80.20 Calculus of gallbladder without cholecystitis without obstruction; Z66 Do not resuscitate; R06.03 Acute respiratory distress; G20.A1 Parkinson's disease without dyskinesia, without mention of fluctuations; E11.9 Type 2 diabetes mellitus without complications; F02.80 Dementia in other diseases classified elsewhere, unspecified severity, without behavioral disturbance, psychotic disturbance, mood disturbance, and anxiety; Z87.891 Personal history of nicotine dependence; Z74.01 Bed confinement status; Z83.3 Family history of diabetes mellitus; Z79.899 Other long term (current) drug therapy
CPT/HCPCS: 36415; 74177; 76705; 80053; 80069; 80202; 82607; 82728; 82746; 82962; 83036; 83540; 83550; 83605; 83615; 83735; 84100; 85014; 85018; 85025; 85045; 85384; 85610; 85652; 85730; 86141; 86850; 86900; 86901; 86920; 87040; 87070; 87075; 87076; 87077; 87081; 87186; 87205; 87426; 92610; 96365; G0378; J1100; J1885; J2003; J2250; J2470; J2704; J7060